=== PATIENT | female | born 1985 | race Caucasian/White ===

== ENCOUNTER → 2017-06-10 21:43 | Outpatient (CLI) | payer OTHER, SELFPAY | PROVIDERS: Family Provider Family Medicine; PCP Family Medicine; Visit Provider Psychiatry & Neurology Psychiatry | DX: G47.12 Idiopathic hypersomnia without long sleep time (principal) | CPT/HCPCS: 95810 ==

== ENCOUNTER → 2017-06-11 13:21 | Outpatient (CLI) | payer OTHER, SELFPAY ==
[2017-06-11 07:16] LABS: Amphetamine Urine VISTA NEGATIVE (<1000 ng/mL); Barbiturate Urine VISTA NEGATIVE (< 200 ng/mL); Benzodiazepine Urine VISTA NEGATIVE (< 200 ng/mL); Cocaine Urine VISTA NEGATIVE (< 300 ng/mL); Ecstacy Urine VISTA NEGATIVE (< 500 ng/mL); Methadone Urine VISTA NEGATIVE (< 300 ng/mL); PCP Urine VISTA NEGATIVE (< 25 ng/mL); THC Urine VISTA NEGATIVE (< 50 ng/mL); Vista UDS pH Range 5
== END ==
PROVIDERS: Family Provider Family Medicine; PCP Family Medicine; Visit Provider Psychiatry & Neurology Psychiatry
DX: G47.12 Idiopathic hypersomnia without long sleep time (principal)
CPT/HCPCS: 80307

== ENCOUNTER 2017-11-27 10:00 | Outpatient (RCR) | payer OTHER, SELFPAY ==
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
--- NOTE | 2017-09-16 17:00 | DT_ITS ---
This patient was seen during an EMR downtime September 09, 2017 - September 16, 2017. This patient may have a combination of paper and electronic documentation or all paper documentation. All documentation is viewable within the e-chart portion of [facility] for each patient visit.
== END 2017-11-27 19:00 | disposition home or self-care (01) ==
LOC: SP 10:00
PROVIDERS: Family Provider Family Medicine; PCP Family Medicine; Visit Provider Family Medicine
DX: S06.0X1S Concussion with loss of consciousness of 30 minutes or less, sequela (principal); R47.9 Unspecified speech disturbances; R41.3 Other amnesia
CPT/HCPCS: 92507; 92523

== ENCOUNTER 2018-06-20 14:00 | Outpatient (RCR) | payer OTHER, SELFPAY ==
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
--- NOTE | 2018-06-20 15:23 | HP.PTDCSUM ---
HP - PT D/C Summary It has been my pleasure to treat DENITA BULL under orders from Ramses Tyson, for the diagnosis of FM/generalized pain. for a total of 20 visit(s). Discharge Date: 06/20/18 Please see the following information for a summary of their discharge status. - Subjective Subjective: Better than I was. Stronger. Overall 6/10 pain many days. Sleep is OK, not great , was better for a while but crappy due to dogs, kids and pain. To doctor [place] in 6 months. Will like to join but not realistic money [place]. - Pain R shoulder/neck Pain Intensity (Out of 10): 6 all over. Pain Intensity (Out of 10): 6 - Overall Improvement % Improvement: 45 - Objective Objective/Function: Full aROM c/s without increased pain today. R shoulder elevation slightly tighter R vs L but very functional and not a lot of increased pain. strength in UE is symmetircal at 4+/5 with only slight abd pain on R transiently/. OVERALL BETTER AND WILL ATTEMPT TO MANAGE SYMPTOMS ON HER OWN. - Goals Goal 1:: Patient feel pain decreased by 50% to 4/10 at worst and manageable Goal Progress: Progressing Goal 2:: C/S AROM 60 ext and shoulder pain abolished. Goal Progress: Progressing Goal 3:: Patient able to do housework without taking frequent breaks Goal Progress: BETTER Goal 4:: I in [employer] pool ex to manage pain. Goal Progress: Goal Met - Plan Plan: D/C - D/C Information Discharge Comments: Pt doing well in water but cannot continue due to cost. Will try exercises to mimic them at home with band and light weight and contact doctor if pain worsens again. If there are questions or concerns regarding this patient's physical therapy, please feel free to call me at [phone]. Thank you for the referral of this patient. Sincerely, Garrick Schuler, DPT, OCS, CSCS
== END 2018-06-20 17:00 | disposition home or self-care (01) ==
LOC: PT 14:00
PROVIDERS: Family Provider Family Medicine; PCP Family Medicine; Visit Provider Family Medicine
DX: S06.0X1D Concussion with loss of consciousness of 30 minutes or less, subsequent encounter (principal); R47.89 Other speech disturbances; R41.3 Other amnesia
CPT/HCPCS: 92507; 97113; 97162; 97530

== ENCOUNTER → 2022-06-05 | Outpatient (CLI) | payer OTHER, SELFPAY ==
[2022-06-05 18:30] LABS: Erythrocyte Sedimentation Rate 27 mm/hr (0-30)
== END | disposition home or self-care (01) ==
PROVIDERS: PCP Family Medicine; Referring Provider Internal Medicine Rheumatology; Visit Provider Internal Medicine Rheumatology
DX: M06.4 Inflammatory polyarthropathy (principal); M79.7 Fibromyalgia
CPT/HCPCS: 36415; 85652

== ENCOUNTER → 2022-09-26 | Outpatient (CLI) | payer OTHER, SELFPAY ==
[2022-09-26 12:47] LABS: Absolute Lymphocyte Count 1.52 X10^3/uL (0.83-4.51); Absolute Neutrophil Count 2.5 X10^3/uL (2.0-7.7); Basophil# 0.03 X10^3/uL; Basophil% 0.6 % (0-1); Eosinophil# 0.19 X10^3/uL; Eosinophils% 4.1 % (0-5); Hematocrit 44.4 % (37-47); Hemoglobin 14.2 g/dL (12.0-15.0); Lymphocyte # 1.52 X10^3/ul (0.83-4.51); Lymphocyte % 32.6 % (19-41); Mean Corpuscular Hgb 30.9 pg (27.0-32.0); Mean Corpuscular Volume 96.5 fL (81-99); Monocyte# 0.44 X10^3/uL; Monocyte% 9.4 % (0-10); NRBC Flagged by Analyzer 0 % (0-5); Neutrophil # 2.47 X10^3/uL (2.7-7.7); Neutrophil % 53.1 % (47-70); Platelet Count 149 K/mm3 (150-450); RBC Distribution Width CV 12.4 % (11.6-14.6); RBC Distribution Width SD 44.3 fl (35.1-43.9); White Blood Count 4.7 K/mm3 (4.4-11.0)
[2022-09-26 13:35] LABS: ALB/GLOB Ratio 0.9 RATIO (0.9-2.4); AST(SGOT) 26 U/L (15-37); Alanine Aminotransfer ALT/SGPT 57 U/L (13-56); Albumin, Serum 3.6 g/dL (3.2-5.0); Alkaline Phosphatase 68 U/L (45-117); Anion Gap 6 (5-15); BUN 6 mg/dL (7-18); BUN/Creat Ratio 8.6 RATIO (10-20); Calcium,Total 8.7 mg/dL (8.5-10.1); Chloride 105 mmol/L (98-107); Creatinine, Serum 0.69 mg/dL (0.55-1.02); EST Glomerular Filtration Rate 101 mL/min (>60); Est Glom Filt Rate - Afr Amer 122 mL/min (>60); Globulin 3.8 g/dL (2.2-4.2); Glucose 121 mg/dL (74-106); Potassium 3.7 mmol/L (3.5-5.1); Protein, Total 7.4 g/dL (6.4-8.2); Sodium Level 137 mmol/L (136-145)
[2022-09-27 15:08] LABS: ANTINUCLEAR ANTIBODIES DIRECT Negative (Negative)
[2022-10-01 18:07] LABS: HLA B27 Negative (.)
== END | disposition home or self-care (01) ==
LOC: MTLAB 11:01
PROVIDERS: PCP Family Medicine; Referring Provider Internal Medicine Rheumatology; Visit Provider Internal Medicine Rheumatology
DX: M06.4 Inflammatory polyarthropathy (principal); Z79.899 Other long term (current) drug therapy
CPT/HCPCS: 36415; 80053; 81374; 85025; 86038

== ENCOUNTER → 2022-12-24 | Outpatient (CLI) | payer OTHER, SELFPAY ==
[2022-12-24 15:25] LABS: Absolute Lymphocyte Count 1.86 X10^3/uL (0.83-4.51); Absolute Neutrophil Count 4.1 X10^3/uL (2.0-7.7); Basophil# 0.05 X10^3/uL; Basophil% 0.7 % (0-1); Eosinophil# 0.17 X10^3/uL; Eosinophils% 2.5 % (0-5); Hematocrit 44.2 % (37-47); Hemoglobin 14.3 g/dL (12.0-15.0); Lymphocyte # 1.86 X10^3/ul (0.83-4.51); Lymphocyte % 27.7 % (19-41); Mean Corp Hgb Conc 32.4 g/dL (32-36); Mean Corpuscular Hgb 30.7 pg (27.0-32.0); Mean Corpuscular Volume 94.8 fL (81-99); Mean Platelet Vol. 12.8 fl (6.2-12.0); Monocyte# 0.51 X10^3/uL; Monocyte% 7.6 % (0-10); NRBC Flagged by Analyzer 0 % (0-5); Neutrophil # 4.11 X10^3/uL (2.7-7.7); Neutrophil % 61.2 % (47-70); Platelet Count 180 K/mm3 (150-450); RBC Distribution Width CV 12.2 % (11.6-14.6); RBC Distribution Width SD 42.7 fl (35.1-43.9); Red Blood Count 4.66 M/mm3 (4.2-5.4); White Blood Count 6.7 K/mm3 (4.4-11.0)
[2022-12-24 16:13] LABS: AST(SGOT) 18 U/L (15-37); Alanine Aminotransfer ALT/SGPT 47 U/L (13-56); Albumin, Serum 3.9 g/dL (3.2-5.0); Alkaline Phosphatase 82 U/L (45-117); Anion Gap 7 (5-15); BUN 9 mg/dL (7-18); BUN/Creat Ratio 12.5 RATIO (10-20); Calcium,Total 9.4 mg/dL (8.5-10.1); Chloride 105 mmol/L (98-107); Creatinine, Serum 0.72 mg/dL (0.55-1.02); EST Glomerular Filtration Rate 97 mL/min (>60); Est Glom Filt Rate - Afr Amer 117 mL/min (>60); Globulin 4.1 g/dL (2.2-4.2); Glucose 84 mg/dL (74-106); Potassium 3.7 mmol/L (3.5-5.1); Sodium Level 138 mmol/L (136-145)
[2022-12-26 13:08] LABS: ANTINUCLEAR ANTIBODIES DIRECT Negative (Negative)
[2022-12-31 16:09] LABS: HLA B27 Negative (.)
== END | disposition home or self-care (01) ==
PROVIDERS: PCP Family Medicine; Referring Provider Internal Medicine Rheumatology; Visit Provider Internal Medicine Rheumatology
DX: M06.4 Inflammatory polyarthropathy (principal); M79.7 Fibromyalgia; Z79.899 Other long term (current) drug therapy
CPT/HCPCS: 36415; 80053; 81374; 85025; 86038

== ENCOUNTER → 2022-12-28 | Outpatient (CLI) | payer OTHER, SELFPAY ==
[2023-01-01 21:07] LABS: G6PD Quant Test 299 (127-427); Red Blood Cell Count Test/G6PD 4.95 x10E6/uL (3.77-5.28)
== END | disposition home or self-care (01) ==
LOC: MTLAB 15:14
PROVIDERS: PCP Family Medicine; Referring Provider Internal Medicine Rheumatology; Visit Provider Internal Medicine Rheumatology
DX: M06.4 Inflammatory polyarthropathy (principal); M79.7 Fibromyalgia; Z79.899 Other long term (current) drug therapy
CPT/HCPCS: 36415; 82955

== ENCOUNTER → 2023-02-22 | Outpatient (CLI) | payer OTHER, SELFPAY ==
[2023-02-22 15:40] LABS: Absolute Lymphocyte Count 1.48 X10^3/uL (0.83-4.51); Absolute Neutrophil Count 3.3 X10^3/uL (2.0-7.7); Basophil# 0.05 X10^3/uL; Basophil% 0.9 % (0-1); Eosinophil# 0.16 X10^3/uL; Hematocrit 42.2 % (37-47); Hemoglobin 13.1 g/dL (12.0-15.0); Lymphocyte # 1.48 X10^3/ul (0.83-4.51); Lymphocyte % 27.4 % (19-41); Mean Corpuscular Hgb 30.5 pg (27.0-32.0); Mean Corpuscular Volume 98.4 fL (81-99); Mean Platelet Vol. 12.7 fl (6.2-12.0); Monocyte% 7.4 % (0-10); NRBC Flagged by Analyzer 0 % (0-5); Neutrophil % 60.9 % (47-70); Platelet Count 150 K/mm3 (150-450); RBC Distribution Width SD 46.4 fl (35.1-43.9); Red Blood Count 4.29 M/mm3 (4.2-5.4); White Blood Count 5.4 K/mm3 (4.4-11.0)
[2023-02-22 15:47] LABS: AST(SGOT) 15 U/L (15-37); Alanine Aminotransfer ALT/SGPT 33 U/L (13-56); Albumin, Serum 3.6 g/dL (3.2-5.0); Alkaline Phosphatase 60 U/L (45-117); Anion Gap 4 (5-15); BUN 12 mg/dL (7-18); BUN/Creat Ratio 11.7 RATIO (10-20); Calcium,Total 8.5 mg/dL (8.5-10.1); Chloride 110 mmol/L (98-107); Creatinine, Serum 1.03 mg/dL (0.55-1.02); EST Glomerular Filtration Rate 64 mL/min (>60); Est Glom Filt Rate - Afr Amer 77 mL/min (>60); Globulin 3.6 g/dL (2.2-4.2); Glucose 112 mg/dL (74-106); Potassium 3.9 mmol/L (3.5-5.1); Protein, Total 7.2 g/dL (6.4-8.2); Sodium Level 141 mmol/L (136-145)
== END | disposition home or self-care (01) ==
LOC: MTLAB 13:36
PROVIDERS: PCP Family Medicine; Referring Provider Internal Medicine Rheumatology; Visit Provider Internal Medicine Rheumatology
DX: M06.4 Inflammatory polyarthropathy (principal); M79.7 Fibromyalgia; Z79.899 Other long term (current) drug therapy
CPT/HCPCS: 36415; 80053; 85025

== ENCOUNTER → 2023-04-19 | Outpatient (CLI) | payer OTHER, MEDICAID, SELFPAY ==
--- OUTSIDE RECORDS SUMMARY | 2023-04-19 17:17 | XMS RPT_ITS | CCD ---
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 weeks.TKRN Asthma, mild persistent 07/06/2013 05/17/19 15 Overview: 08/12/2013Patient has a history of asthma treated by Dr. Ramirez. She uses an albuterol inhaler when necessary. TKRN Adjustment disorder with mixed anxiety and depre ssed mood 07/06/2013 05/17/2014 Overview: 08/12/2013Pt has a history of depression diagnosed at age 17. She has been off medication for 2 weeks . She believes she is doing well off medication. Discussed increased risks of depression during and and importance of reporting the development or worsening of symptoms should they occur. Pt denies ever having any suicidal thoughts or tendencies or thoughts of hurting others. Patient denies any depression. TKRN GBS (group B Streptococcus c arrier), +RV culture, currently 01/19/2013 03/20/2013 Gestational diabetes mellitus in childbirth, t controlled 12/31/2012 03/20/2013 contractions 12/03/2012 03/20/2013 Overview: - was 1-2cm dilated, admitted overnight obs and given BMZ x 2, no cervical change, stable. Federica Escobar MD Gestational thrombocytopenia 11/21/2012 Overview: Platelets 148 at 28 weeks Abnormal glucose complicating 11/22/19 13 03/20/2013 Overview: Ordered 3 hour gtt Exposure to parvovirus 11/15/2012 3 Overview: November 15, 2012 IGM and IGG neg during acute illness. Recommend repeat testing in 10 days and 3-4 weeks. May need MFM consult and US monitoring. Kate Castrejon MD Supervision of other normal 09/02/2012 03/20/2013 Overview: Boy on us- Anxiety 08/04/2012 03/20/2013 History of depression 07/22/2012 03/20/2013 Overview: 07/22/2012Pt has a history of depression diagnosed at age 17. She has been off medication for 8 years . She believes she is doing well off medication. Discussed increased risks of depression during and and importance of reporting the development or worsening of symptoms should they occur. Pt denies ever having any suicidal thoughts or tendencies or thoughts of hurting others Immunization due 07/22/2012 03/20/2013 Overview: 07/22/2012tetanus vaccine is not up to date Backache, unspecified 05/03/2011 03/20/2013 Asthma 10/28/2009 03/20/2013 Overview: 07/22/2012Patient has a history of asthma treated by Dr. Ramirez. She uses an albuterol inhaler when necessary. . documented as of this encounter (statuses as of 10/05/2021) [facility] History of Past illness Narrative* Problem Noted Date Resolved Date 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 aura and without status migrainosus 01/18/2017 11/18/2017 Gestational diabetes 09/23/2013 05/17/2014 Overview: 09/23/13 - needs diabetic teaching & hbA1c - KJ Short interval between pregn ancies complicating , antepartum 08/12/2013 05/17/2014 Overview: 08/12/2013She delivered her previous child February 05, 2013. TKRN History of gestational diabe jaja in prior , currently 08/12/2013 05/17/2014 Overview: 08/18/13 - 3hr GTT ordered - KJ 08/12/2013She has a history of gestational diabetes with her last . One-hour GCT ordered by Dr. Alvarez. TKRN History of labor 08/12/2013 015 Overview: 08/12/2013 history of labor with last beginning at 29 weeks.TKRN Asthma, mild persistent 07/06/2013 05/17/19 15 Overview: 08/12/2013Patient has a history of asthma treated by Dr. Ramirez. She uses an albuterol inhaler when necessary. TKRN Adjustment disorder with mixed anxiety and depre ssed mood 07/06/2013 05/17/2014 Overview: 08/12/2013Pt has a history of depression diagnosed at age 17. She has been off medication for 2 weeks . She believes she is doing well off medication. Discussed increased risks of depression during and and importance of reporting the development or worsening of symptoms should they occur. Pt denies ever having any suicidal thoughts or tendencies or thoughts of hurting others. Patient denies any depression. TKRN GBS (group B Streptococcus c arrier), +RV culture, currently 01/19/2013 03/20/2013 Gestational diabetes mellitus in childbirth, t controlled 12/31/2012 03/20/2013 contractions 12/03/2012 03/20/2013 Overview: 8/21-22- was 1-2cm dilated, admitted overnight obs and given BMZ x 2, no cervical change, stable. Federica Escobar MD Gestational thrombocytopenia 11/21/2012 Overview: Platelets 148 at 28 weeks Abnormal glucose complicating 11/22/19 13 03/20/2013 Overview: Ordered 3 hour gtt Exposure to parvovirus 11/15/2012 3 Overview: November 15, 2012 IGM and IGG neg during acute illness. Recommend repeat testing in 10 days and 3-4 weeks. May need MFM consult and US monitoring. Kate Castrejon MD Supervision of other normal 09/02/2012 03/20/2013 Overview: Boy on us- Anxiety 08/04/2012 03/20/2013 History of depression 07/22/2012 03/20/2013 Overview: 07/22/2012Pt has a history of depression diagnosed at age 17. She has been off medication for 8 years . She believes she is doing well off medication. Discussed increased risks of depression during and and importance of reporting the development or worsening of symptoms should they occur. Pt denies ever having any suicidal thoughts or tendencies or thoughts of hurting others Immunization due 07/22/2012 03/20/2013 Overview: 07/22/2012tetanus vaccine is not up to date Backache, unspecified 05/03/2011 03/20/2013 Asthma 10/28/2009 03/20/2013 Overview: 07/22/2012Patient has a history of asthma treated by Dr. Ramirez. She uses an albuterol inhaler when necessary. . documented as of this encounter (statuses as of 12/07/2021) [facility] History of Past illness Narrative* Problem Noted Date Resolved Date 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 aura and without status migrainosus 01/18/2017 11/18/2017 Gestational diabetes 09/23/2013 05/17/2014 Overview: 09/23/13 - needs diabetic teaching & hbA1c - KJ Short interval between pregn ancies complicating , antepartum 08/12/2013 05/17/2014 Overview: 08/12/2013She delivered her previous child February 05, 2013. TKRN History of gestational diabe jaja in prior , currently 08/12/2013 05/17/2014 Overview: 08/18/13 - 3hr GTT ordered - KJ 08/12/2013She has a history of gestational diabetes with her last . One-hour GCT ordered by Dr. Alvarez. TKRN History of labor 08/12/2013 015 Overview: 08/12/2013 history of labor with last beginning at 29 weeks.TKRN Asthma, mild persistent 07/06/2013 05/17/19 15 Overview: 08/12/2013Patient has a history of asthma treated by Dr. Ramirez. She uses an albuterol inhaler when necessary. TKRN Adjustment disorder with mixed anxiety and depre ssed mood 07/06/2013 05/17/2014 Overview: 08/12/2013Pt has a history of depression diagnosed at age 17. She has been off medication for 2 weeks . She believes she is doing well off medication. Discussed increased risks of depression during and and importance of reporting the development or worsening of symptoms should they occur. Pt denies ever having any suicidal thoughts or tendencies or thoughts of hurting others. Patient denies any depression. TKRN GBS (group B Streptococcus c arrier), +RV culture, currently 01/19/2013 03/20/2013 Gestational diabetes mellitus in childbirth, t controlled 12/31/2012 03/20/2013 contractions 12/03/2012 03/20/2013 Overview: - was 1-2cm dilated, admitted overnight obs and given BMZ x 2, no cervical change, stable. Federica Escobar MD Gestational thrombocytopenia 11/21/2012 Overview: Platelets 148 at 28 weeks Abnormal glucose complicating 11/22/19 13 03/20/2013 Overview: Ordered 3 hour gtt Exposure to parvovirus 11/15/2012 3 Overview: November 15, 2012 IGM and IGG neg during acute illness. Recommend repeat testing in 10 days and 3-4 weeks. May need MFM consult and US monitoring. Kate Castrejon MD Supervision of other normal 09/02/2012 03/20/2013 Overview: Boy on us- Anxiety 08/04/2012 03/20/2013 History of depression 07/22/2012 03/20/2013 Overview: 07/22/2012Pt has a history of depression diagnosed at age 17. She has been off medication for 8 years . She believes she is doing well off medication. Discussed increased risks of depression during and and importance of reporting the development or worsening of symptoms should they occur. Pt denies ever having any suicidal thoughts or tendencies or thoughts of hurting others Immunization due 07/22/2012 03/20/2013 Overview: 07/22/2012tetanus vaccine is not up to date Backache, unspecified 05/03/2011 03/20/2013 Asthma 10/28/2009 03/20/2013 Overview: 07/22/2012Patient has a history of asthma treated by Dr. Ramirez. She uses an albuterol inhaler when necessary. . documented as of this encounter (statuses as of 01/31/2022) [facility] History of Past illness Narrative* Problem Noted Date Resolved Date 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 aura and without status migrainosus 01/18/2017 11/18/2017 Gestational diabetes 09/23/2013 05/17/2014 Overview: 09/23/13 - needs diabetic teaching & hbA1c - KJ Short interval between pregn ancies complicating , antepartum 08/12/2013 05/17/2014 Overview: 08/12/2013She delivered her previous child February 05, 2013. TKRN History of gestational diabe jaja in prior , currently 08/12/2013 05/17/2014 Overview: 08/18/13 - 3hr GTT ordered - KJ 08/12/2013She has a history of gestational diabetes with her last . One-hour GCT ordered by Dr. Alvarez. TKRN History of labor 08/12/2013 015 Overview: 08/12/2013 history of labor with last beginning at 29 weeks.TKRN Asthma, mild persistent 07/06/2013 05/17/19 15 Overview: 08/12/2013Patient has a history of asthma treated by Dr. Ramirez. She uses an albuterol inhaler when necessary. TKRN Adjustment disorder with mixed anxiety and depre ssed mood 07/06/2013 05/17/2014 Overview: 08/12/2013Pt has a history of depression diagnosed at age 17. She has been off medication for 2 weeks . She believes she is doing well off medication. Discussed increased risks of depression during and and importance of reporting the development or worsening of symptoms should they occur. Pt denies ever having any suicidal thoughts or tendencies or thoughts of hurting others. Patient denies any depression. TKRN GBS (group B Streptococcus c arrier), +RV culture, currently 01/19/2013 03/20/2013 Gestational diabetes mellitus in childbirth, t controlled 12/31/2012 03/20/2013 contractions 12/03/2012 03/20/2013 Overview: - was 1-2cm dilated, admitted overnight obs and given BMZ x 2, no cervical change, stable. Federica Escobar MD Gestational thrombocytopenia 11/21/2012 Overview: Platelets 148 at 28 weeks Abnormal glucose complicating 11/22/19 13 03/20/2013 Overview: Ordered 3 hour gtt Exposure to parvovirus 11/15/2012 3 Overview: November 15, 2012 IGM and IGG neg during acute illness. Recommend repeat testing in 10 days and 3-4 weeks. May need MFM consult and US monitoring. Kate Castrejon MD Supervision of other normal 09/02/2012 03/20/2013 Overview: Boy on us- Anxiety 08/04/2012 03/20/2013 History of depression 07/22/2012 03/20/2013 Overview: 07/22/2012Pt has a history of depression diagnosed at age 17. She has been off medication for 8 years . She believes she is doing well off medication. Discussed increased risks of depression during and and importance of reporting the development or worsening of symptoms should they occur. Pt denies ever having any suicidal thoughts or tendencies or thoughts of hurting others Immunization due 07/22/2012 03/20/2013 Overview: 07/22/2012tetanus vaccine is not up to date Backache, unspecified 05/03/2011 03/20/2013 Asthma 10/28/2009 03/20/2013 Overview: 07/22/2012Patient has a history of asthma treated by Dr. Ramirez. She uses an albuterol inhaler when necessary. . documented as of this encounter (statuses as of 03/10/2022) [facility] History of Past illness Narrative* Problem Noted Date Resolved Date 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 aura and without status migrainosus 01/18/2017 11/18/2017 Gestational diabetes 09/23/2013 05/17/2014 Overview: 09/23/13 - needs diabetic teaching & hbA1c - KJ Short interval between pregn ancies complicating , antepartum 08/12/2013 05/17/2014 Overview: 08/12/2013She delivered her previous child February 05, 2013. TKRN History of gestational diabe jaja in prior , currently 08/12/2013 05/17/2014 Overview: 08/18/13 - 3hr GTT ordered - KJ 08/12/2013Shmatilde has a history of gestational diabetes with her last . One-hour GCT ordered by Dr. Alvarez. TKRN History of labor 08/12/2013 015 Overview: 08/12/2013 history of labor with last beginning at 29 weeks.TKRN Asthma, mild persistent 07/06/2013 05/17/19 15 Overview: 08/12/2013Patient has a history of asthma treated by Dr. Ramirez. She uses an albuterol inhaler when necessary. TKRN Adjustment disorder with mixed anxiety and depre ssed mood 07/06/2013 05/17/2014 Overview: 08/12/2013Pt has a history of depression diagnosed at age 17. She has been off medication for 2 weeks . She believes she is doing well off medication. Discussed increased risks of depression during and and importance of reporting the development or worsening of symptoms should they occur. Pt denies ever having any suicidal thoughts or tendencies or thoughts of hurting others. Patient denies any depression. TKRN GBS (group B Streptococcus c arrier), +RV culture, currently 01/19/2013 03/20/2013 Gestational diabetes mellitus in childbirth, t controlled 12/31/2012 03/20/2013 contractions 12/03/2012 03/20/2013 Overview: - was 1-2cm dilated, admitted overnight obs and given BMZ x 2, no cervical change, stable. Federica Escobar MD Gestational thrombocytopenia 11/21/2012 Overview: Platelets 148 at 28 weeks Abnormal glucose complicating 11/22/19 13 03/20/2013 Overview: Ordered 3 hour gtt Exposure to parvovirus 11/15/2012 3 Overview: November 15, 2012 IGM and IGG neg during acute illness. Recommend repeat testing in 10 days and 3-4 weeks. May need MFM consult and US monitoring. Kate Castrejon MD Supervision of other normal 09/02/2012 03/20/2013 Overview: Boy on us- Anxiety 08/04/2012 03/20/2013 History of depression 07/22/2012 03/20/2013 Overview: 07/22/2012Pt has a history of depression diagnosed at age 17. She has been off medication for 8 years . She believes she is doing well off medication. Discussed increased risks of depression during and and importance of reporting the development or worsening of symptoms should they occur. Pt denies ever having any suicidal thoughts or tendencies or thoughts of hurting others Immunization due 07/22/2012 03/20/2013 Overview: 07/22/2012tetanus vaccine is not up to date Backache, unspecified 05/03/2011 03/20/2013 Asthma 10/28/2009 03/20/2013 Overview: 07/22/2012Patient has a history of asthma treated by Dr. Ramirez. She uses an albuterol inhaler when necessary. . documented as of this encounter (statuses as of 05/09/2022) [facility] History of Past illness Narrative* Problem Noted Date Resolved Date 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 aura and without status migrainosus 01/18/2017 11/18/2017 Gestational diabetes 09/23/2013 05/17/2014 Overview: 09/23/13 - needs diabetic teaching & hbA1c - KJ Short interval between pregn ancies complicating , antepartum 08/12/2013 05/17/2014 Overview: 08/12/2013She delivered her previous child February 05, 2013. TKRN History of gestational diabe jaja in prior , currently 08/12/2013 05/17/2014 Overview: 08/18/13 - 3hr GTT ordered - KJ 08/12/2013She has a history of gestational diabetes with her last . One-hour GCT ordered by Dr. Alvarez. TKRN History of labor 08/12/2013 015 Overview: 08/12/2013 history of labor with last beginning at 29 weeks.TKRN Asthma, mild persistent 07/06/2013 05/17/19 15 Overview: 08/12/2013Patient has a history of asthma treated by Dr. Ramirez. She uses an albuterol inhaler when necessary. TKRN Adjustment disorder with mixed anxiety and depre ssed mood 07/06/2013 05/17/2014 Overview: 08/12/2013Pt has a history of depression diagnosed at age 17. She has been off medication for 2 weeks . She believes she is doing well off medication. Discussed increased risks of depression during and and importance of reporting the development or worsening of symptoms should they occur. Pt denies ever having any suicidal thoughts or tendencies or thoughts of hurting others. Patient denies any depression. TKRN GBS (group B Streptococcus c arrier), +RV culture, currently 01/19/2013 03/20/2013 Gestational diabetes mellitus in childbirth, t controlled 12/31/2012 03/20/2013 contractions 12/03/2012 03/20/2013 Overview: - was 1-2cm dilated, admitted overnight obs and given BMZ x 2, no cervical change, stable. Federica Escobar MD Gestational thrombocytopenia 11/21/2012 Overview: Platelets 148 at 28 weeks Abnormal glucose complicating 11/22/19 13 03/20/2013 Overview: Ordered 3 hour gtt Exposure to parvovirus 11/15/2012 3 Overview: November 15, 2012 IGM and IGG neg during acute illness. Recommend repeat testing in 10 days and 3-4 weeks. May need MFM consult and US monitoring. Kate Castrejon MD Supervision of other normal 09/02/2012 03/20/2013 Overview: Boy on us- Anxiety 08/04/2012 03/20/2013 History of depression 07/22/2012 03/20/2013 Overview: 07/22/2012Pt has a history of depression diagnosed at age 17. She has been off medication for 8 years . She believes she is doing well off medication. Discussed increased risks of depression during and and importance of reporting the development or worsening of symptoms should they occur. Pt denies ever having any suicidal thoughts or tendencies or thoughts of hurting others Immunization due 07/22/2012 03/20/2013 Overview: 07/22/2012tetanus vaccine is not up to date Backache, unspecified 05/03/2011 03/20/2013 Asthma 10/28/2009 03/20/2013 Overview: 07/22/2012Patient has a history of asthma treated by Dr. Ramirez. She uses an albuterol inhaler when necessary. . documented as of this encounter (statuses as of 06/06/2022) [facility] History of Past illness Narrative* Problem Noted Date Resolved Date 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 aura and without status migrainosus 01/18/2017 11/18/2017 Gestational diabetes 09/23/2013 05/17/2014 Overview: 09/23/13 - needs diabetic teaching & hbA1c - KJ Short interval between pregn ancies complicating , antepartum 08/12/2013 05/17/2014 Overview: 08/12/2013She delivered her previous child February 05, 2013. TKRN History of gestational diabe jaja in prior , currently 08/12/2013 05/17/2014 Overview: 08/18/13 - 3hr GTT ordered - KJ 08/12/2013She has a history of gestational diabetes with her last . One-hour GCT ordered by Dr. Alvarez. TKRN History of labor 08/12/2013 015 Overview: 08/12/2013 history of labor with last beginning at 29 weeks.TKRN Asthma, mild persistent 07/06/2013 05/17/19 15 Overview: 08/12/2013Patient has a history of asthma treated by Dr. Ramirez. She uses an albuterol inhaler when necessary. TKRN Adjustment disorder with mixed anxiety and depre ssed mood 07/06/2013 05/17/2014 Overview: 08/12/2013Pt has a history of depression diagnosed at age 17. She has been off medication for 2 weeks . She believes she is doing well off medication. Discussed increased risks of depression during and and importance of reporting the development or worsening of symptoms should they occur. Pt denies ever having any suicidal thoughts or tendencies or thoughts of hurting others. Patient denies any depression. TKRN GBS (group B Streptococcus c arrier), +RV culture, currently 01/19/2013 03/20/2013 Gestational diabetes mellitus in childbirth, t controlled 12/31/2012 03/20/2013 contractions 12/03/2012 03/20/2013 Overview: - was 1-2cm dilated, admitted overnight obs and given BMZ x 2, no cervical change, stable. Federica Escobar MD Gestational thrombocytopenia 11/21/2012 Overview: Platelets 148 at 28 weeks Abnormal glucose complicating 11/22/19 13 03/20/2013 Overview: Ordered 3 hour gtt Exposure to parvovirus 11/15/2012 3 Overview: November 15, 2012 IGM and IGG neg during acute illness. Recommend repeat testing in 10 days and 3-4 weeks. May need MFM consult and US monitoring. Kate Castrejon MD Supervision of other normal 09/02/2012 03/20/2013 Overview: Boy on us- Anxiety 08/04/2012 03/20/2013 History of depression 07/22/2012 03/20/2013 Overview: 07/22/2012Pt has a history of depression diagnosed at age 17. She has been off medication for 8 years . She believes she is doing well off medication. Discussed increased risks of depression during and and importance of reporting the development or worsening of symptoms should they occur. Pt denies ever having any suicidal thoughts or tendencies or thoughts of hurting others Immunization due 07/22/2012 03/20/2013 Overview: 07/22/2012tetanus vaccine is not up to date Backache, unspecified 05/03/2011 03/20/2013 Asthma 10/28/2009 03/20/2013 Overview: 07/22/2012Patient has a history of asthma treated by Dr. Ramirez. She uses an albuterol inhaler when necessary. . documented as of this encounter (statuses as of 07/19/2022) [facility] History of Past illness Narrative* Problem Noted Date Resolved Date 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 aura and without status migrainosus 01/18/2017 11/18/2017 Gestational diabetes 09/23/2013 05/17/2014 Overview: 09/23/13 - needs diabetic teaching & hbA1c - KJ Short interval between pregn ancies complicating , antepartum 08/12/2013 05/17/2014 Overview: 08/12/2013She delivered her previous child February 05, 2013. TKRN History of gestational diabe jaja in prior , currently 08/12/2013 05/17/2014 Overview: 08/18/13 - 3hr GTT ordered - KJ 08/12/2013She has a history of gestational diabetes with her last . One-hour GCT ordered by Dr. Alvarez. TKRN History of labor 08/12/2013 015 Overview: 08/12/2013 history of labor with last beginning at 29 weeks.TKRN Asthma, mild persistent 07/06/2013 05/17/19 15 Overview: 08/12/2013Patient has a history of asthma treated by Dr. Ramirez. She uses an albuterol inhaler when necessary. TKRN Adjustment disorder with mixed anxiety and depre ssed mood 07/06/2013 05/17/2014 Overview: 08/12/2013Pt has a history of depression diagnosed at age 17. She has been off medication for 2 weeks . She believes she is doing well off medication. Discussed increased risks of depression during and and importance of reporting the development or worsening of symptoms should they occur. Pt denies ever having any suicidal thoughts or tendencies or thoughts of hurting others. Patient denies any depression. TKRN GBS (group B Streptococcus c arrier), +RV culture, currently 01/19/2013 03/20/2013 Gestational diabetes mellitus in childbirth, t controlled 12/31/2012 03/20/2013 contractions 12/03/2012 03/20/2013 Overview: - was 1-2cm dilated, admitted overnight obs and given BMZ x 2, no cervical change, stable. Federica Escobar MD Gestational thrombocytopenia 11/21/2012 Overview: Platelets 148 at 28 weeks Abnormal glucose complicating 11/22/19 13 03/20/2013 Overview: Ordered 3 hour gtt Exposure to parvovirus 11/15/2012 3 Overview: November 15, 2012 IGM and IGG neg during acute illness. Recommend repeat testing in 10 days and 3-4 weeks. May need MFM consult and US monitoring. Kate Castrejon MD Supervision of other normal 09/02/2012 03/20/2013 Overview: Boy on us- Anxiety 08/04/2012 03/20/2013 History of depression 07/22/2012 03/20/2013 Overview: 07/22/2012Pt has a history of depression diagnosed at age 17. She has been off medication for 8 years . She believes she is doing well off medication. Discussed increased risks of depression during and and importance of reporting the development or worsening of symptoms should they occur. Pt denies ever having any suicidal thoughts or tendencies or thoughts of hurting others Immunization due 07/22/2012 03/20/2013 Overview: 07/22/2012tetanus vaccine is not up to date Backache, unspecified 05/03/2011 03/20/2013 Asthma 10/28/2009 03/20/2013 Overview: 07/22/2012Patient has a history of asthma treated by Dr. Ramirez. She uses an albuterol inhaler when necessary. . documented as of this encounter (statuses as of 07/30/2022) [facility] History of Past illness Narrative* Problem Noted Date Resolved Date 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 aura and without status migrainosus 01/18/2017 11/18/2017 Gestational diabetes 09/23/2013 05/17/2014 Overview: 09/23/13 - needs diabetic teaching & hbA1c - KJ Short interval between pregn ancies complicating , antepartum 08/12/2013 05/17/2014 Overview: 08/12/2013She delivered her previous child February 05, 2013. TKRN History of gestational diabe jaja in prior , currently 08/12/2013 05/17/2014 Overview: 08/18/13 - 3hr GTT ordered - KJ 08/12/2013She has a history of gestational diabetes with her last . One-hour GCT ordered by Dr. Alvarez. TKRN History of labor 08/12/2013 015 Overview: 08/12/2013 history of labor with last beginning at 29 weeks.TKRN Asthma, mild persistent 07/06/2013 05/17/19 15 Overview: 08/12/2013Patient has a history of asthma treated by Dr. Ramirez. She uses an albuterol inhaler when necessary. TKRN Adjustment disorder with mixed anxiety and depre ssed mood 07/06/2013 05/17/2014 Overview: 08/12/2013Pt has a history of depression diagnosed at age 17. She has been off medication for 2 weeks . She believes she is doing well off medication. Discussed increased risks of depression during and and importance of reporting the development or worsening of symptoms should they occur. Pt denies ever having any suicidal thoughts or tendencies or thoughts of hurting others. Patient denies any depression. TKRN GBS (group B Streptococcus c arrier), +RV culture, currently 01/19/2013 03/20/2013 Gestational diabetes mellitus in childbirth, t controlled 12/31/2012 03/20/2013 contractions 12/03/2012 03/20/2013 Overview: - was 1-2cm dilated, admitted overnight obs and given BMZ x 2, no cervical change, stable. Federica Escobar MD Gestational thrombocytopenia 11/21/2012 Overview: Platelets 148 at 28 weeks Abnormal glucose complicating 11/22/19 13 03/20/2013 Overview: Ordered 3 hour gtt Exposure to parvovirus 11/15/2012 3 Overview: November 15, 2012 IGM and IGG neg during acute illness. Recommend repeat testing in 10 days and 3-4 weeks. May need MFM consult and US monitoring. Kate Castrejon MD Supervision of other normal 09/02/2012 03/20/2013 Overview: Boy on us- Anxiety 08/04/2012 03/20/2013 History of depression 07/22/2012 03/20/2013 Overview: 07/22/2012Pt has a history of depression diagnosed at age 17. She has been off medication for 8 years . She believes she is doing well off medication. Discussed increased risks of depression during and and importance of reporting the development or worsening of symptoms should they occur. Pt denies ever having any suicidal thoughts or tendencies or thoughts of hurting others Immunization due 07/22/2012 03/20/2013 Overview: 07/22/2012tetanus vaccine is not up to date Backache, unspecified 05/03/2011 03/20/2013 Asthma 10/28/2009 03/20/2013 Overview: 07/22/2012Patient has a history of asthma treated by Dr. Ramirez. She uses an albuterol inhaler when necessary. . documented as of this encounter (statuses as of 08/02/2022) [facility] History of Past illness Narrative* Problem Noted Date Resolved Date 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 aura and without status migrainosus 01/18/2017 11/18/2017 Gestational diabetes 09/23/2013 05/17/2014 Overview: 09/23/13 - needs diabetic teaching & hbA1c - KJ Short interval between pregn ancies complicating , antepartum 08/12/2013 05/17/2014 Overview: 08/12/2013She delivered her previous child February 05, 2013. TKRN History of gestational diabe jaja in prior , currently 08/12/2013 05/17/2014 Overview: 08/18/13 - 3hr GTT ordered - KJ 08/12/2013She has a history of gestational diabetes with her last . One-hour GCT ordered by Dr. Alvarez. TKRN History of labor 08/12/2013 015 Overview: 08/12/2013 history of labor with last beginning at 29 weeks.TKRN Asthma, mild persistent 07/06/2013 05/17/19 15 Overview: 08/12/2013Patient has a history of asthma treated by Dr. Ramirez. She uses an albuterol inhaler when necessary. TKRN Adjustment disorder with mixed anxiety and depre ssed mood 07/06/2013 05/17/2014 Overview: 08/12/2013Pt has a history of depression diagnosed at age 17. She has been off medication for 2 weeks . She believes she is doing well off medication. Discussed increased risks of depression during and and importance of reporting the development or worsening of symptoms should they occur. Pt denies ever having any suicidal thoughts or tendencies or thoughts of hurting others. Patient denies any depression. TKRN GBS (group B Streptococcus c arrier), +RV culture, currently 01/19/2013 03/20/2013 Gestational diabetes mellitus in childbirth, t controlled 12/31/2012 03/20/2013 contractions 12/03/2012 03/20/2013 Overview: - was 1-2cm dilated, admitted overnight obs and given BMZ x 2, no cervical change, stable. Federica Escobar MD Gestational thrombocytopenia 11/21/2012 Overview: Platelets 148 at 28 weeks Abnormal glucose complicating 11/22/19 13 03/20/2013 Overview: Ordered 3 hour gtt Exposure to parvovirus 11/15/2012 3 Overview: November 15, 2012 IGM and IGG neg during acute illness. Recommend repeat testing in 10 days and 3-4 weeks. May need MFM consult and US monitoring. Kate Castrejon MD Supervision of other normal 09/02/2012 03/20/2013 Overview: Boy on us- Anxiety 08/04/2012 03/20/2013 History of depression 07/22/2012 03/20/2013 Overview: 07/22/2012Pt has a history of depression diagnosed at age 17. She has been off medication for 8 years . She believes she is doing well off medication. Discussed increased risks of depression during and and importance of reporting the development or worsening of symptoms should they occur. Pt denies ever having any suicidal thoughts or tendencies or thoughts of hurting others Immunization due 07/22/2012 03/20/2013 Overview: 07/22/2012tetanus vaccine is not up to date Backache, unspecified 05/03/2011 03/20/2013 Asthma 10/28/2009 03/20/2013 Overview: 07/22/2012Patient has a history of asthma treated by Dr. Ramirez. She uses an albuterol inhaler when necessary. . documented as of this encounter (statuses as of 08/14/2022) [facility] History of Past illness Narrative* Problem Noted Date Resolved Date 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 aura and without status migrainosus 01/18/2017 11/18/2017 Gestational diabetes 09/23/2013 05/17/2014 Overview: 09/23/13 - needs diabetic teaching & hbA1c - KJ Short interval between pregn ancies complicating , antepartum 08/12/2013 05/17/2014 Overview: 08/12/2013She delivered her previous child February 05, 2013. TKRN History of gestational diabe jaja in prior , currently 08/12/2013 05/17/2014 Overview: 08/18/13 - 3hr GTT ordered - KJ 08/12/2013She has a history of gestational diabetes with her last . One-hour GCT ordered by Dr. Alvarez. TKRN History of labor 08/12/2013 015 Overview: 08/12/2013 history of labor with last beginning at 29 weeks.TKRN Asthma, mild persistent 07/06/2013 05/17/19 15 Overview: 08/12/2013Patient has a history of asthma treated by Dr. Ramirez. She uses an albuterol inhaler when necessary. TKRN Adjustment disorder with mixed anxiety and depre ssed mood 07/06/2013 05/17/2014 Overview: 08/12/2013Pt has a history of depression diagnosed at age 17. She has been off medication for 2 weeks . She believes she is doing well off medication. Discussed increased risks of depression during and and importance of reporting the development or worsening of symptoms should they occur. Pt denies ever having any suicidal thoughts or tendencies or thoughts of hurting others. Patient denies any depression. TKRN GBS (group B Streptococcus c arrier), +RV culture, currently 01/19/2013 03/20/2013 Gestational diabetes mellitus in childbirth, t controlled 12/31/2012 03/20/2013 contractions 12/03/2012 03/20/2013 Overview: - was 1-2cm dilated, admitted overnight obs and given BMZ x 2, no cervical change, stable. Federica Escobar MD Gestational thrombocytopenia 11/21/2012 Overview: Platelets 148 at 28 weeks Abnormal glucose complicating 11/22/19 13 03/20/2013 Overview: Ordered 3 hour gtt Exposure to parvovirus 11/15/2012 3 Overview: November 15, 2012 IGM and IGG neg during acute illness. Recommend repeat testing in 10 days and 3-4 weeks. May need MFM consult and US monitoring. Kate Castrejon MD Supervision of other normal 09/02/2012 03/20/2013 Overview: Boy on us- Anxiety 08/04/2012 03/20/2013 History of depression 07/22/2012 03/20/2013 Overview: 07/22/2012Pt has a history of depression diagnosed at age 17. She has been off medication for 8 years . She believes she is doing well off medication. Discussed increased risks of depression during and and importance of reporting the development or worsening of symptoms should they occur. Pt denies ever having any suicidal thoughts or tendencies or thoughts of hurting others Immunization due 07/22/2012 03/20/2013 Overview: 07/22/2012tetanus vaccine is not up to date Backache, unspecified 05/03/2011 03/20/2013 Asthma 10/28/2009 03/20/2013 Overview: 07/22/2012Patient has a history of asthma treated by Dr. Ramirez. She uses an albuterol inhaler when necessary. . documented as of this encounter (statuses as of 08/15/2022) [facility] History of Past illness Narrative* Problem Noted Date Resolved Date 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 aura and without status migrainosus 01/18/2017 11/18/2017 Gestational diabetes 09/23/2013 05/17/2014 Overview: 09/23/13 - needs diabetic teaching & hbA1c - KJ Short interval between pregn ancies complicating , antepartum 08/12/2013 05/17/2014 Overview: 08/12/2013She delivered her previous child February 05, 2013. TKRN History of gestational diabe jaja in prior , currently 08/12/2013 05/17/2014 Overview: 08/18/13 - 3hr GTT ordered - KJ 08/12/2013She has a history of gestational diabetes with her last . One-hour GCT ordered by Dr. Alvarez. TKRN History of labor 08/12/2013 015 Overview: 08/12/2013 history of labor with last beginning at 29 weeks.TKRN Asthma, mild persistent 07/06/2013 05/17/19 15 Overview: 08/12/2013Patient has a history of asthma treated by Dr. Ramirez. She uses an albuterol inhaler when necessary. TKRN Adjustment disorder with mixed anxiety and depre ssed mood 07/06/2013 05/17/2014 Overview: 08/12/2013Pt has a history of depression diagnosed at age 17. She has been off medication for 2 weeks . She believes she is doing well off medication. Discussed increased risks of depression during and and importance of reporting the development or worsening of symptoms should they occur. Pt denies ever having any suicidal thoughts or tendencies or thoughts of hurting others. Patient denies any depression. TKRN GBS (group B Streptococcus c arrnanette), +RV culture, currently 01/19/2013 03/20/2013 Gestational diabetes mellitus in childbirth, t controlled 12/31/2012 03/20/2013 contractions 12/03/2012 03/20/2013 Overview: - was 1-2cm dilated, admitted overnight obs and given BMZ x 2, no cervical change, stable. Federica Escobar MD Gestational thrombocytopenia 11/21/2012 Overview: Platelets 148 at 28 weeks Abnormal glucose complicating 11/22/19 13 03/20/2013 Overview: Ordered 3 hour gtt Exposure to parvovirus 11/15/2012 3 Overview: November 15, 2012 IGM and IGG neg during acute illness. Recommend repeat testing in 10 days and 3-4 weeks. May need MFM consult and US monitoring. Kate Castrejon MD Supervision of other normal 09/02/2012 03/20/2013 Overview: Boy on us- Anxiety 08/04/2012 03/20/2013 History of depression 07/22/2012 03/20/2013 Overview: 07/22/2012Pt has a history of depression diagnosed at age 17. She has been off medication for 8 years . She believes she is doing well off medication. Discussed increased risks of depression during and and importance of reporting the development or worsening of symptoms should they occur. Pt denies ever having any suicidal thoughts or tendencies or thoughts of hurting others Immunization due 07/22/2012 03/20/2013 Overview: 07/22/2012tetanus vaccine is not up to date Backache, unspecified 05/03/2011 03/20/2013 Asthma 10/28/2009 03/20/2013 Overview: 07/22/2012Patient has a history of asthma treated by Dr. Ramirez. She uses an albuterol inhaler when necessary. . documented as of this encounter (statuses as of 09/12/2022) [facility] History of Past illness Narrative* Problem Noted Date Resolved Date 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 aura and without status migrainosus 01/18/2017 11/18/2017 Gestational diabetes 09/23/2013 05/17/2014 Overview: 09/23/13 - needs diabetic teaching & hbA1c - KJ Short interval between pregn ancies complicating , antepartum 08/12/2013 05/17/2014 Overview: 08/12/2013She delivered her previous child February 05, 2013. TKRN History of gestational diabe jaja in prior , currently 08/12/2013 05/17/2014 Overview: 08/18/13 - 3hr GTT ordered - KJ 08/12/2013She has a history of gestational diabetes with her last . One-hour GCT ordered by Dr. Alvarez. TKRN History of labor 08/12/2013 015 Overview: 08/12/2013 history of labor with last beginning at 29 weeks.TKRN Asthma, mild persistent 07/06/2013 05/17/19 15 Overview: 08/12/2013Patient has a history of asthma treated by Dr. Ramirez. She uses an albuterol inhaler when necessary. TKRN Adjustment disorder with mixed anxiety and depre ssed mood 07/06/2013 05/17/2014 Overview: 08/12/2013Pt has a history of depression diagnosed at age 17. She has been off medication for 2 weeks . She believes she is doing well off medication. Discussed increased risks of depression during and and importance of reporting the development or worsening of symptoms should they occur. Pt denies ever having any suicidal thoughts or tendencies or thoughts of hurting others. Patient denies any depression. TKRN GBS (group B Streptococcus c arrier), +RV culture, currently 01/19/2013 03/20/2013 Gestational diabetes mellitus in childbirth, t controlled 12/31/2012 03/20/2013 contractions 12/03/2012 03/20/2013 Overview: - was 1-2cm dilated, admitted overnight obs and given BMZ x 2, no cervical change, stable. Federica Escobar MD Gestational thrombocytopenia 11/21/2012 Overview: Platelets 148 at 28 weeks Abnormal glucose complicating 11/22/19 13 03/20/2013 Overview: Ordered 3 hour gtt Exposure to parvovirus 11/15/2012 3 Overview: November 15, 2012 IGM and IGG neg during acute illness. Recommend repeat testing in 10 days and 3-4 weeks. May need MFM consult and US monitoring. Kate Castrejon MD Supervision of other normal 09/02/2012 03/20/2013 Overview: Boy on us- Anxiety 08/04/2012 03/20/2013 History of depression 07/22/2012 03/20/2013 Overview: 07/22/2012Pt has a history of depression diagnosed at age 17. She has been off medication for 8 years . She believes she is doing well off medication. Discussed increased risks of depression during and and importance of reporting the development or worsening of symptoms should they occur. Pt denies ever having any suicidal thoughts or tendencies or thoughts of hurting others Immunization due 07/22/2012 03/20/2013 Overview: 07/22/2012tetanus vaccine is not up to date Backache, unspecified 05/03/2011 03/20/2013 Asthma 10/28/2009 03/20/2013 Overview: 07/22/2012Patient has a history of asthma treated by Dr. Ramirez. She uses an albuterol inhaler when necessary. . documented as of this encounter (statuses as of 09/20/2022) [facility] History of Past illness Narrative* Problem Noted Date Resolved Date 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 aura and without status migrainosus 01/18/2017 11/18/2017 Gestational diabetes 09/23/2013 05/17/2014 Overview: 09/23/13 - needs diabetic teaching & hbA1c - KJ Short interval between pregn ancies complicating , antepartum 08/12/2013 05/17/2014 Overview: 08/12/2013She delivered her previous child February 05, 2013. TKRN History of gestational diabe jaja in prior , currently 08/12/2013 05/17/2014 Overview: 08/18/13 - 3hr GTT ordered - KJ 08/12/2013She has a history of gestational diabetes with her last . One-hour GCT ordered by Dr. Alvarez. TKRN History of labor 08/12/2013 015 Overview: 08/12/2013 history of labor with last beginning at 29 weeks.TKRN Asthma, mild persistent 07/06/2013 05/17/19 15 Overview: 08/12/2013Patient has a history of asthma treated by Dr. Ramirez. She uses an albuterol inhaler when necessary. TKRN Adjustment disorder with mixed anxiety and depre ssed mood 07/06/2013 05/17/2014 Overview: 08/12/2013Pt has a history of depression diagnosed at age 17. She has been off medication for 2 weeks . She believes she is doing well off medication. Discussed increased risks of depression during and and importance of reporting the development or worsening of symptoms should they occur. Pt denies ever having any suicidal thoughts or tendencies or thoughts of hurting others. Patient denies any depression. TKRN GBS (group B Streptococcus c arrier), +RV culture, currently 01/19/2013 03/20/2013 Gestational diabetes mellitus in childbirth, t controlled 12/31/2012 03/20/2013 contractions 12/03/2012 03/20/2013 Overview: - was 1-2cm dilated, admitted overnight obs and given BMZ x 2, no cervical change, stable. Federica Escobar MD Gestational thrombocytopenia 11/21/2012 Overview: Platelets 148 at 28 weeks Abnormal glucose complicating 11/22/19 13 03/20/2013 Overview: Ordered 3 hour gtt Exposure to parvovirus 11/15/2012 3 Overview: November 15, 2012 IGM and IGG neg during acute illness. Recommend repeat testing in 10 days and 3-4 weeks. May need MFM consult and US monitoring. Kate Castrejon MD Supervision of other normal 09/02/2012 03/20/2013 Overview: Boy on us- Anxiety 08/04/2012 03/20/2013 History of depression 07/22/2012 03/20/2013 Overview: 07/22/2012Pt has a history of depression diagnosed at age 17. She has been off medication for 8 years . She believes she is doing well off medication. Discussed increased risks of depression during and and importance of reporting the development or worsening of symptoms should they occur. Pt denies ever having any suicidal thoughts or tendencies or thoughts of hurting others Immunization due 07/22/2012 03/20/2013 Overview: 07/22/2012tetanus vaccine is not up to date Backache, unspecified 05/03/2011 03/20/2013 Asthma 10/28/2009 03/20/2013 Overview: 07/22/2012Patient has a history of asthma treated by Dr. Ramirez. She uses an albuterol inhaler when necessary. . documented as of this encounter (statuses as of 09/26/2022) [facility] History of Past illness Narrative* Problem Noted Date Resolved Date 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 aura and without status migrainosus 01/18/2017 11/18/2017 Gestational diabetes 09/23/2013 05/17/2014 Overview: 09/23/13 - needs diabetic teaching & hbA1c - KJ Short interval between pregn ancies complicating , antepartum 08/12/2013 05/17/2014 Overview: 08/12/2013She delivered her previous child February 05, 2013. TKRN History of gestational diabe jaja in prior , currently 08/12/2013 05/17/2014 Overview: 08/18/13 - 3hr GTT ordered - KJ 08/12/2013She has a history of gestational diabetes with her last . One-hour GCT ordered by Dr. Alvarez. TKRN History of labor 08/12/2013 015 Overview: 08/12/2013 history of labor with last beginning at 29 weeks.TKRN Asthma, mild persistent 07/06/2013 05/17/19 15 Overview: 08/12/2013Patient has a history of asthma treated by Dr. Ramirez. She uses an albuterol inhaler when necessary. TKRN Adjustment disorder with mixed anxiety and depre ssed mood 07/06/2013 05/17/2014 Overview: 08/12/2013Pt has a history of depression diagnosed at age 17. She has been off medication for 2 weeks . She believes she is doing well off medication. Discussed increased risks of depression during and and importance of reporting the development or worsening of symptoms should they occur. Pt denies ever having any suicidal thoughts or tendencies or thoughts of hurting others. Patient denies any depression. TKRN GBS (group B Streptococcus c arrier), +RV culture, currently 01/19/2013 03/20/2013 Gestational diabetes mellitus in childbirth, t controlled 12/31/2012 03/20/2013 contractions 12/03/2012 03/20/2013 Overview: - was 1-2cm dilated, admitted overnight obs and given BMZ x 2, no cervical change, stable. Federica Escobar MD Gestational thrombocytopenia 11/21/2012 Overview: Platelets 148 at 28 weeks Abnormal glucose complicating 11/22/19 13 03/20/2013 Overview: Ordered 3 hour gtt Exposure to parvovirus 11/15/2012 3 Overview: November 15, 2012 IGM and IGG neg during acute illness. Recommend repeat testing in 10 days and 3-4 weeks. May need MFM consult and US monitoring. Kate Castrejon MD Supervision of other normal 09/02/2012 03/20/2013 Overview: Boy on us- Anxiety 08/04/2012 03/20/2013 History of depression 07/22/2012 03/20/2013 Overview: 07/22/2012Pt has a history of depression diagnosed at age 17. She has been off medication for 8 years . She believes she is doing well off medication. Discussed increased risks of depression during and and importance of reporting the development or worsening of symptoms should they occur. Pt denies ever having any suicidal thoughts or tendencies or thoughts of hurting others Immunization due 07/22/2012 03/20/2013 Overview: 07/22/2012tetanus vaccine is not up to date Backache, unspecified 05/03/2011 03/20/2013 Asthma 10/28/2009 03/20/2013 Overview: 07/22/2012Patient has a history of asthma treated by Dr. Ramirez. She uses an albuterol inhaler when necessary. . documented as of this encounter (statuses as of 10/01/2022) [facility] History of Past illness Narrative* Problem Noted Date Resolved Date 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 aura and without status migrainosus 01/18/2017 11/18/2017 Gestational diabetes 09/23/2013 05/17/2014 Overview: 09/23/13 - needs diabetic teaching & hbA1c - KJ Short interval between pregn ancies complicating , antepartum 08/12/2013 05/17/2014 Overview: 08/12/2013She delivered her previous child February 05, 2013. TKRN History of gestational diabe jaja in prior , currently 08/12/2013 05/17/2014 Overview: 08/18/13 - 3hr GTT ordered - KJ 08/12/2013She has a history of gestational diabetes with her last . One-hour GCT ordered by Dr. Alvarez. TKRN History of labor 08/12/2013 015 Overview: 08/12/2013 history of labor with last beginning at 29 weeks.TKRN Asthma, mild persistent 07/06/2013 05/17/19 15 Overview: 08/12/2013Patient has a history of asthma treated by Dr. Ramirez. She uses an albuterol inhaler when necessary. TKRN Adjustment disorder with mixed anxiety and depre ssed mood 07/06/2013 05/17/2014 Overview: 08/12/2013Pt has a history of depression diagnosed at age 17. She has been off medication for 2 weeks . She believes she is doing well off medication. Discussed increased risks of depression during and and importance of reporting the development or worsening of symptoms should they occur. Pt denies ever having any suicidal thoughts or tendencies or thoughts of hurting others. Patient denies any depression. TKRN GBS (group B Streptococcus c arrier), +RV culture, currently 01/19/2013 03/20/2013 Gestational diabetes mellitus in childbirth, t controlled 12/31/2012 03/20/2013 contractions 12/03/2012 03/20/2013 Overview: - was 1-2cm dilated, admitted overnight obs and given BMZ x 2, no cervical change, stable. Federica Escobar MD Gestational thrombocytopenia 11/21/2012 Overview: Platelets 148 at 28 weeks Abnormal glucose complicating 11/22/19 13 03/20/2013 Overview: Ordered 3 hour gtt Exposure to parvovirus 11/15/2012 3 Overview: November 15, 2012 IGM and IGG neg during acute illness. Recommend repeat testing in 10 days and 3-4 weeks. May need MFM consult and US monitoring. Kate Castrejon MD Supervision of other normal 09/02/2012 03/20/2013 Overview: Boy on us- Anxiety 08/04/2012 03/20/2013 History of depression 07/22/2012 03/20/2013 Overview: 07/22/2012Pt has a history of depression diagnosed at age 17. She has been off medication for 8 years . She believes she is doing well off medication. Discussed increased risks of depression during and and importance of reporting the development or worsening of symptoms should they occur. Pt denies ever having any suicidal thoughts or tendencies or thoughts of hurting others Immunization due 07/22/2012 03/20/2013 Overview: 07/22/2012tetanus vaccine is not up to date Backache, unspecified 05/03/2011 03/20/2013 Asthma 10/28/2009 03/20/2013 Overview: 07/22/2012Patient has a history of asthma treated by Dr. Ramirez. She uses an albuterol inhaler when necessary. . documented as of this encounter (statuses as of 10/03/2022) [facility] History of Past illness Narrative* Problem Noted Date Resolved Date 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 aura and without status migrainosus 01/18/2017 11/18/2017 Gestational diabetes 09/23/2013 05/17/2014 Overview: 09/23/13 - needs diabetic teaching & hbA1c - KJ Short interval between pregn ancies complicating , antepartum 08/12/2013 05/17/2014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 EVENT MONITOR, CARDIAC Reema Alaniz DO [address] [place] [address] [facility] [employer] [address] [place] [address] Reason Comments Refill Request Reason Comments Received Outside Medical Records Gastric biopsy report from [facility] Reason Onset Date Comments Refill Request 10/04/2021 Reason Comments Ear Problem Bilateral ear pain s tarted about a month ago Reason Comments Outside Lab Results [facility] Reason Comments Received Outside Medical Records [facility] 07/18/22 Reason Comments Received Outside Medical Records [facility] 08/13/22 Reason Comments Abdominal Pain Reason Comments Post Op Follow Up 08/23 laparoscopic ch olecystectomy with cholangiograms Reason Comments Received Outside Medical Records [facility] 09/19/22 Reason Comments Outside Lab Results [facility] 09/26/22 Reason Comments Received Outside Medical Records [facility] Daniel direct 09/26/2022 Reason Comments Received Outside Medical Records [facility] Visit summary 12/18/2022 6 week f/u lap chol Reason Comments Outside Lab Results [facility] 12/24 Reason Comments Received Outside Medical Records [facility] 02/22/2023 Source Comments (unrecognize d section and content) In the event this informatio n is protected by the Federal Confidentiality of Alcohol and Drug Abuse Patient Records regulations: The Federal rules restrict any use of the information to criminally investigate or prosecute any alcohol or drug abuse patient.[facility] the event this information is protected by the Federal Confidentiality of Alcohol and Drug Abuse Patient Records regulations: The Federal rules restrict any use of the information to criminally investigate or prosecute any alcohol or drug abuse patient.[facility] the event this information is protected by the Federal Confidentiality of Alcohol and Drug Abuse Patient Records regulations: The Federal rules restrict any use of the information to criminally investigate or prosecute any alcohol or drug abuse patient.[facility] the event this information is protected by the Federal Confidentiality of Alcohol and Drug Abuse Patient Records regulations: The Federal rules restrict any use of the information to criminally investigate or prosecute any alcohol or drug abuse patient.[facility] the event this information is protected by the Federal Confidentiality of Alcohol and Drug Abuse Patient Records regulations: The Federal rules restrict any use of the information to criminally investigate or prosecute any alcohol or drug abuse patient.[facility] Hospital[facility] the event this information is protected by the Federal Confidentiality of Alcohol and Drug Abuse Patient Records regulations: The Federal rules restrict any use of the information to criminally investigate or prosecute any alcohol or drug abuse patient.[facility] HospitalIn the event this information is protected by the Federal Confidentiality of Alcohol and Drug Abuse Patient Records regulations: The Federal rules restrict any use of the information to criminally investigate or prosecute any alcohol or drug abuse patient.[facility] HospitalIn the event this information is protected by the Federal Confidentiality of Alcohol and Drug Abuse Patient Records regulations: The Federal rules restrict any use of the information to criminally investigate or prosecute any alcohol or drug abuse patient.[facility] HospitalIn the event this information is protected by the Federal Confidentiality of Alcohol and Drug Abuse Patient Records regulations: The Federal rules restrict any use of the information to criminally investigate or prosecute any alcohol or drug abuse patient.[facility] HospitalIn the event this information is protected by the Federal Confidentiality of Alcohol and Drug Abuse Patient Records regulations: The Federal rules restrict any use of the information to criminally investigate or prosecute any alcohol or drug abuse patient.[facility] HospitalIn the event this information is protected by the Federal Confidentiality of Alcohol and Drug Abuse Patient Records regulations: The Federal rules restrict any use of the information to criminally investigate or prosecute any alcohol or drug abuse patient.[facility] HospitalIn the event this information is protected by the Federal Confidentiality of Alcohol and Drug Abuse Patient Records regulations: The Federal rules restrict any use of the information to criminally investigate or prosecute any alcohol or drug abuse patient.[facility] HospitalIn the event this information is protected by the Federal Confidentiality of Alcohol and Drug Abuse Patient Records regulations: The Federal rules restrict any use of the information to criminally investigate or prosecute any alcohol or drug abuse patient.[facility] HospitalIn the event this information is protected by the Federal Confidentiality of Alcohol and Drug Abuse Patient Records regulations: The Federal rules restrict any use of the information to criminally investigate or prosecute any alcohol or drug abuse patient.[facility] HospitalIn the event this information is protected by the Federal Confidentiality of Alcohol and Drug Abuse Patient Records regulations: The Federal rules restrict any use of the information to criminally investigate or prosecute any alcohol or drug abuse patient.[facility] HospitalIn the event this information is protected by the Federal Confidentiality of Alcohol and Drug Abuse Patient Records regulations: The Federal rules restrict any use of the information to criminally investigate or prosecute any alcohol or drug abuse patient.[facility] HospitalIn the event this information is protected by the Federal Confidentiality of Alcohol and Drug Abuse Patient Records regulations: The Federal rules restrict any use of the information to criminally investigate or prosecute any alcohol or drug abuse patient.[facility] HospitalIn the event this information is protected by the Federal Confidentiality of Alcohol and Drug Abuse Patient Records regulations: The Federal rules restrict any use of the information to criminally investigate or prosecute any alcohol or drug abuse patient.[facility] HospitalIn the event this information is protected by the Federal Confidentiality of Alcohol and Drug Abuse Patient Records regulations: The Federal rules restrict any use of the information to criminally investigate or prosecute any alcohol or drug abuse patient.[facility] HospitalIn the event this information is protected by the Federal Confidentiality of Alcohol and Drug Abuse Patient Records regulations: The Federal rules restrict any use of the information to criminally investigate or prosecute any alcohol or drug abuse patient.[facility] HospitalIn the event this information is protected by the Federal Confidentiality of Alcohol and Drug Abuse Patient Records regulations: The Federal rules restrict any use of the information to criminally investigate or prosecute any alcohol or drug abuse patient.[facility] HospitalIn the event this information is protected by the Federal Confidentiality of Alcohol and Drug Abuse Patient Records regulations: The Federal rules restrict any use of the information to criminally investigate or prosecute any alcohol or drug abuse patient.[facility] HospitalIn the event this information is protected by the Federal Confidentiality of Alcohol and Drug Abuse Patient Records regulations: The Federal rules restrict any use of the information to criminally investigate or prosecute any alcohol or drug abuse patient.[facility] HospitalIn the event this information is protected by the Federal Confidentiality of Alcohol and Drug Abuse Patient Records regulations: The Federal rules restrict any use of the information to criminally investigate or prosecute any alcohol or drug abuse patient.[facility] HospitalIn the event this information is protected by the Federal Confidentiality of Alcohol and Drug Abuse Patient Records regulations: The Federal rules restrict any use of the information to criminally investigate or prosecute any alcohol or drug abuse patient.[facility] HospitalIn the event this information is protected by the Federal Confidentiality of Alcohol and Drug Abuse Patient Records regulations: The Federal rules restrict any use of the information to criminally investigate or prosecute any alcohol or drug abuse patient.[facility] Care Teams (unrecognized sec tion and content) Soda Fountain Operator Relationship Specialty Start Date End Date Lenora Ramirez MD [facility] [place] [address] PCP - General Family Practice 06/13/10 Soda Fountain Operator Relationship Specialty Start Date End Date Lenora Ramirez MD [address] [place] [id number] PCP - General Family Practice 06/13/10 Soda Fountain Operator Relationship Specialty Start Date End Date Lenora Ramirez MD [address] [place] [id number] PCP - General Family Practice 06/13/10 Soda Fountain Operator Relationship Specialty Start Date End Date Lenora Ramirez MD [address] [place] [address] [place] [address] PCP - General Family Medicine 06/13/10 Soda Fountain Operator Relationship Specialty Start Date End Date Lenora Ramirez MD [address] [place] [address] [place] [address] PCP - General Family Medicine 06/13/10 Soda Fountain Operator Relationship Specialty Start Date End Date Lenora Ramirez MD [address] [place] [address] [place] [address] PCP - General Family Medicine 06/13/10 Soda Fountain Operator Relationship Specialty Start Date End Date Lenora Ramirez MD [address] [place] [address] [place] [address] PCP - General Family Medicine 06/13/10 Soda Fountain Operator Relationship Specialty Start Date End Date Lenora Ramirez MD [address] [place] [address] PCP - General Family Medicine 06/13/10 Soda Fountain Operator Relationship Specialty Start Date End Date Lenora Ramirez MD [address] [place] [address] PCP - General Family Medicine 06/13/10 Soda Fountain Operator Relationship Specialty Start Date End Date Lenora Ramirez MD [address] [place] [address] PCP - General Family Medicine 06/13/10 Soda Fountain Operator Relationship Specialty Start Date End Date Lenora Ramirez MD [address] [place] [address] PCP - General Family Medicine 06/13/10 Soda Fountain Operator Relationship Specialty Start Date End Date Lenora Ramirez MD [address] [place] [address] PCP - General Family Medicine 06/13/10 Soda Fountain Operator Relationship Specialty Start Date End Date Lenora Ramirez MD [address] [place] [address] PCP - General Family Medicine 06/13/10 Soda Fountain Operator Relationship Specialty Start Date End Date Lenora Ramirez MD [address] [place] [address] PCP - General Family Medicine 06/13/10 Soda Fountain Operator Relationship Specialty Start Date End Date Lenora Ramirez MD [address] [place] [address] PCP - General Family Medicine 06/13/10 Soda Fountain Operator Relationship Specialty Start Date End Date Lenora Ramirez MD [address] [place] [address] PCP - General Family Medicine 06/13/10 FOR RECORDS PERTAINING TO PATIENTS WHO ARE OR HAVE BEEN ENROLLED IN A CHEMICAL DEPENDENCY/SUBSTANCEABUSE PROGRAM, SOME INFORMATION MAY BE OMITTED. This clinical summary was aggregated from multiple sources. Caution should be exercised in using it in the provision of clinical care. This summary normalizes information from multiple sources, and as a consequence, information in this document may materially change the coding, format and clinical context of patient data. In addition, data may be omitted in some cases. CLINICAL DECISIONS SHOULD BE BASED ON THE PRIMARY CLINICAL RECORDS. [employer] provides no warranty or guarantee of the accuracy or completeness of information in this document.
[2023-04-19 17:35] LABS: Absolute Neutrophil Count 3.2 X10^3/uL (2.0-7.7); Basophil# 0.03 X10^3/uL; Basophil% 0.6 % (0-1); Eosinophil# 0.14 X10^3/uL; Eosinophils% 2.6 % (0-5); Hematocrit 42.9 % (37-47); Lymphocyte % 27.8 % (19-41); Mean Corp Hgb Conc 32.6 g/dL (32-36); Mean Corpuscular Hgb 32.1 pg (27.0-32.0); Mean Corpuscular Volume 98.4 fL (81-99); Mean Platelet Vol. 12.1 fl (6.2-12.0); Monocyte# 0.47 X10^3/uL; Monocyte% 8.7 % (0-10); NRBC Flagged by Analyzer 0 % (0-5); Neutrophil # 3.24 X10^3/uL (2.7-7.7); Neutrophil % 60.1 % (47-70); Platelet Count 152 K/mm3 (150-450); RBC Distribution Width CV 12.5 % (11.6-14.6); RBC Distribution Width SD 45.3 fl (35.1-43.9); Red Blood Count 4.36 M/mm3 (4.2-5.4); White Blood Count 5.4 K/mm3 (4.4-11.0)
[2023-04-19 18:00] LABS: AST(SGOT) 16 U/L (15-37); Alanine Aminotransfer ALT/SGPT 33 U/L (13-56); Albumin, Serum 3.7 g/dL (3.2-5.0); Alkaline Phosphatase 65 U/L (45-117); Anion Gap 5 (5-15); BUN 10 mg/dL (7-18); BUN/Creat Ratio 15.2 RATIO (10-20); Chloride 108 mmol/L (98-107); Creatinine, Serum 0.66 mg/dL (0.55-1.02); EST Glomerular Filtration Rate 107 mL/min (>60); Est Glom Filt Rate - Afr Amer 130 mL/min (>60); Globulin 3.8 g/dL (2.2-4.2); Glucose 89 mg/dL (74-106); Potassium 3.5 mmol/L (3.5-5.1); Protein, Total 7.5 g/dL (6.4-8.2); Sodium Level 139 mmol/L (136-145)
== END | disposition home or self-care (01) ==
LOC: MTLAB 16:38
PROVIDERS: PCP Family Medicine; Referring Provider Internal Medicine Rheumatology; Visit Provider Internal Medicine Rheumatology
DX: M06.4 Inflammatory polyarthropathy (principal); M79.7 Fibromyalgia; Z79.899 Other long term (current) drug therapy
CPT/HCPCS: 36415; 80053; 85025

== ENCOUNTER → 2023-06-20 | Outpatient (CLI) | payer OTHER, SELFPAY ==
[2023-06-20 15:34] LABS: Absolute Lymphocyte Count 3.69 X10^3/uL (0.83-4.51); Absolute Neutrophil Count 5.5 X10^3/uL (2.0-7.7); Basophil# 0.04 X10^3/uL; Basophil% 0.4 % (0-1); Eosinophil# 0.06 X10^3/uL; Eosinophils% 0.6 % (0-5); Lymphocyte # 3.69 X10^3/ul (0.83-4.51); Lymphocyte % 35.3 % (19-41); Mean Corp Hgb Conc 31.1 g/dL (32-36); Mean Corpuscular Hgb 31.2 pg (27.0-32.0); Mean Corpuscular Volume 100.2 fL (81-99); Monocyte# 1.19 X10^3/uL; Monocyte% 11.4 % (0-10); NRBC Flagged by Analyzer 0 % (0-5); Neutrophil # 5.45 X10^3/uL (2.7-7.7); Neutrophil % 52.1 % (47-70); Platelet Count 178 K/mm3 (150-450); RBC Distribution Width SD 44.4 fl (35.1-43.9); Red Blood Count 4.49 M/mm3 (4.2-5.4); White Blood Count 10.5 K/mm3 (4.4-11.0)
[2023-06-20 16:15] LABS: AST(SGOT) 20 U/L (15-37); Alanine Aminotransfer ALT/SGPT 45 U/L (13-56); Albumin, Serum 3.8 g/dL (3.2-5.0); Alkaline Phosphatase 62 U/L (45-117); Anion Gap 10 (5-15); BUN 9 mg/dL (7-18); Calcium,Total 9.1 mg/dL (8.5-10.1); Chloride 105 mmol/L (98-107); Creatinine, Serum 0.82 mg/dL (0.55-1.02); EST Glomerular Filtration Rate 83 mL/min (>60); Est Glom Filt Rate - Afr Amer 100 mL/min (>60); Globulin 3.9 g/dL (2.2-4.2); Glucose 69 mg/dL (74-106); Potassium 3.6 mmol/L (3.5-5.1); Protein, Total 7.7 g/dL (6.4-8.2); Sodium Level 140 mmol/L (136-145)
--- OUTSIDE RECORDS SUMMARY | 2023-06-20 20:02 | XMS RPT_ITS | CCD ---
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 migraine without aura, intractable, without status migrainosus- Primary 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 aura and without status migrainosus Chronic migraine without aura, with intractable migraine, so stated, without mention of status migrainosus Chronic migraine without aura, with intractable migraine, so stated, with status migrainosus [facility] Diagnosis Chronic migraine without aura, intractable, without status migrainosus- Primary 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 aura and without status migrainosus Chronic migraine without aura, with intractable migraine, so stated, without mention of status migrainosus Chronic migraine without aura, with intractable migraine, so stated, with status migrainosus [facility] Diagnosis 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 aura and with status migrainosus- Primary Chronic migraine without aura, with intractable migraine, so stated, with status migrainosus [facility] Diagnosis Chronic migraine without aura, intractable, without status migrainosus- Primary 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 aura and without status migrainosus Chronic migraine without aura, with intractable migraine, so stated, without mention of status migrainosus Chronic migraine without aura, with intractable migraine, so stated, with status migrainosus documented in this encounter [facility] Summary Purpose Family History No Family History Records FoundNo Family History Records FoundNo Family History Records FoundNo Family History Records FoundNo Family History Records FoundNo Family History Records FoundNo Family History Records FoundNo Family History Records FoundNo Family History Records Found Advance Directives Documents on File Type Date 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 Follow-up lipids for further recommendations. Johnie Alaniz DO 07/24/2018 2:21 PM documented in this encounter Assessments Diagnosis PVC's (premature ventricular contractions)- Primary Other premature beats Hypercholesterolemia Pure hypercholesterolemia Family history of coronary artery disease Family history of ischemic heart disease Palpitations Diagnosis Palpitations Additional Source Comments INFORMATION SOURCE (unrecogn ized section and content) DATE CREATED AUTHOR AUTHOR'S ORGANIZ ATION 09/30/2017 [facility] [employer] DATE CREATED AUTHOR AUTHOR'S ORGANIZ ATION 07/25/2018 [facility] DATE CREATED AUTHOR AUTHOR'S ORGANIZ ATION 09/14/2018 [facility] [employer] DATE CREATED AUTHOR AUTHOR'S ORGANIZ ATION 03/25/2020 [facility] ([place]) DATE CREATED AUTHOR AUTHOR'S ORGANIZ ATION 10/03/2020 [facility] DATE CREATED AUTHOR AUTHOR'S ORGANIZ ATION 03/26/2021 [facility] DATE CREATED AUTHOR AUTHOR'S ORGANIZ ATION 09/16/2022 [facility] DATE CREATED AUTHOR AUTHOR'S ORGANIZ ATION 06/19/2023 [facility] Reason for Visit (unrecogniz ed section and content) Specialty Diagnoses / Procedures Referred By Pamela jimenez Referred To Contact Neurology / HEADACHE Diagnoses DHE #1 Procedures INFUSION HEADACHE Nakul Mata DO [address] [place] [address] Neur Headache Main [address] [place] [address] Referral ID Status Reason Start Date Expiration Date V isits Requested Visits Authorized [id number] Authorized 06/14/2023 09/12/2023 1 99 Reason Comments Infusion Headache Specialty Diagnoses / Procedures Referred By Contac t Referred To Contact Neurology / HEADACHE Diagnoses DHE #1 Procedures INFUSION HEADACHE Nakul Mata, DO [address] [place] [address] Neur Headache Main [address] [place] [address] Referral ID Status Reason Start Date Expiration Date V isits Requested Visits Authorized [id number] Authorized 06/14/2023 09/12/2023 1 99 Reason Comments Follow-up 6 month-complains of normal palpitations Status Reason Specialty Diagnoses / Procedures Referred By Contact Referred To Contact Closed Cardiovascular Medicine Diagnoses Palpitations Procedures EVENT MONITOR, CARDIAC Johnie Alaniz DO [address] [place] [address] [facility] 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 [address] [place] [address] Reason Comments Refill Request Reason Comments Received Outside Medical Records Gastric biopsy report from [facility] Reason Onset Date Comments Refill Request 10/04/2021 Reason Comments Ear Problem Bilateral ear pain s tarted about a month ago Reason Comments Outside Lab Results [facility] Reason Comments Received Outside Medical Records [facility] 07/18/22 Reason Comments Received Outside Medical Records [facility] 08/13/22 Reason Comments Abdominal Pain Reason Comments Post Op Follow Up 08/23 laparoscopic ch olecystectomy with cholangiograms Reason Comments Received Outside Medical Records [facility] 09/19/22 Reason Comments Outside Lab Results [facility] 09/26/22 Reason Comments Received Outside Medical Records [facility] Daniel direct 09/26/2022 Reason Comments Received Outside Medical Records [facility] Visit summary 12/18/2022 6 week f/u lap chol Reason Comments Outside Lab Results [facility] 12/24 Reason Comments Received Outside Medical Records [facility] 02/22/2023 Reason Comments Received Outside Medical Records [facility] EGD report 05/13/23 Reason Comments Follow Up Migraines, have not been seen since 2018 Specialty Diagnoses / Procedures Referred By Contac t Referred To Contact Neurology Diagnoses 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 aura and without status migrainosus Procedures CONSULT TO NEUROLOGY OFFICE[facility] [address] [place] [address] [place] [address] Referral ID Status Reason Start Date Expiration Date V isits Requested Visits Authorized [id number] Closed PCP Requested Referral 05/08/2023 05/07/2024 1 1 Reason Comments Appointment Headache Infusions Reason Comments Chronic Migraine Reason Comments Headache Infusion Source Comments (unrecognize d section and content) In the event this informatio n is protected by the Federal Confidentiality of Alcohol and Drug Abuse Patient Records regulations: The Federal rules restrict any use of the information to criminally investigate or prosecute any alcohol or drug abuse patient.[facility] the event this information is protected by the Federal Confidentiality of Alcohol and Drug Abuse Patient Records regulations: The Federal rules restrict any use of the information to criminally investigate or prosecute any alcohol or drug abuse patient.[facility] the event this information is protected by the Federal Confidentiality of Alcohol and Drug Abuse Patient Records regulations: The Federal rules restrict any use of the information to criminally investigate or prosecute any alcohol or drug abuse patient.[facility] the event this information is protected by the Federal Confidentiality of Alcohol and Drug Abuse Patient Records regulations: The Federal rules restrict any use of the information to criminally investigate or prosecute any alcohol or drug abuse patient.[facility] the event this information is protected by the Federal Confidentiality of Alcohol and Drug Abuse Patient Records regulations: The Federal rules restrict any use of the information to criminally investigate or prosecute any alcohol or drug abuse patient.[facility] the event this information is protected by the Federal Confidentiality of Alcohol and Drug Abuse Patient Records regulations: The Federal rules restrict any use of the information to criminally investigate or prosecute any alcohol or drug abuse patient.[facility] the event this information is protected by the Federal Confidentiality of Alcohol and Drug Abuse Patient Records regulations: The Federal rules restrict any use of the information to criminally investigate or prosecute any alcohol or drug abuse patient.[facility] the event this information is protected by the Federal Confidentiality of Alcohol and Drug Abuse Patient Records regulations: The Federal rules restrict any use of the information to criminally investigate or prosecute any alcohol or drug abuse patient.[facility] the event this information is protected by the Federal Confidentiality of Alcohol and Drug Abuse Patient Records regulations: The Federal rules restrict any use of the information to criminally investigate or prosecute any alcohol or drug abuse patient.[facility] the event this information is protected by the Federal Confidentiality of Alcohol and Drug Abuse Patient Records regulations: The Federal rules restrict any use of the information to criminally investigate or prosecute any alcohol or drug abuse patient.[facility] the event this information is protected by the Federal Confidentiality of Alcohol and Drug Abuse Patient Records regulations: The Federal rules restrict any use of the information to criminally investigate or prosecute any alcohol or drug abuse patient.[facility] the event this information is protected by the Federal Confidentiality of Alcohol and Drug Abuse Patient Records regulations: The Federal rules restrict any use of the information to criminally investigate or prosecute any alcohol or drug abuse patient.[facility] the event this information is protected by the Federal Confidentiality of Alcohol and Drug Abuse Patient Records regulations: The Federal rules restrict any use of the information to criminally investigate or prosecute any alcohol or drug abuse patient.[facility] the event this information is protected by the Federal Confidentiality of Alcohol and Drug Abuse Patient Records regulations: The Federal rules restrict any use of the information to criminally investigate or prosecute any alcohol or drug abuse patient.[facility] the event this information is protected by the Federal Confidentiality of Alcohol and Drug Abuse Patient Records regulations: The Federal rules restrict any use of the information to criminally investigate or prosecute any alcohol or drug abuse patient.[facility] the event this information is protected by the Federal Confidentiality of Alcohol and Drug Abuse Patient Records regulations: The Federal rules restrict any use of the information to criminally investigate or prosecute any alcohol or drug abuse patient.[facility] the event this information is protected by the Federal Confidentiality of Alcohol and Drug Abuse Patient Records regulations: The Federal rules restrict any use of the information to criminally investigate or prosecute any alcohol or drug abuse patient.[facility] the event this information is protected by the Federal Confidentiality of Alcohol and Drug Abuse Patient Records regulations: The Federal rules restrict any use of the information to criminally investigate or prosecute any alcohol or drug abuse patient.[facility] the event this information is protected by the Federal Confidentiality of Alcohol and Drug Abuse Patient Records regulations: The Federal rules restrict any use of the information to criminally investigate or prosecute any alcohol or drug abuse patient.[facility] System[facility] the event this information is protected by the Federal Confidentiality of Alcohol and Drug Abuse Patient Records regulations: The Federal rules restrict any use of the information to criminally investigate or prosecute any alcohol or drug abuse patient.[facility] the event this information is protected by the Federal Confidentiality of Alcohol and Drug Abuse Patient Records regulations: The Federal rules restrict any use of the information to criminally investigate or prosecute any alcohol or drug abuse patient.[facility] the event this information is protected by the Federal Confidentiality of Alcohol and Drug Abuse Patient Records regulations: The Federal rules restrict any use of the information to criminally investigate or prosecute any alcohol or drug abuse patient.[facility] the event this information is protected by the Federal Confidentiality of Alcohol and Drug Abuse Patient Records regulations: The Federal rules restrict any use of the information to criminally investigate or prosecute any alcohol or drug abuse patient.[facility] the event this information is protected by the Federal Confidentiality of Alcohol and Drug Abuse Patient Records regulations: The Federal rules restrict any use of the information to criminally investigate or prosecute any alcohol or drug abuse patient.[facility] the event this information is protected by the Federal Confidentiality of Alcohol and Drug Abuse Patient Records regulations: The Federal rules restrict any use of the information to criminally investigate or prosecute any alcohol or drug abuse patient.[facility] the event this information is protected by the Federal Confidentiality of Alcohol and Drug Abuse Patient Records regulations: The Federal rules restrict any use of the information to criminally investigate or prosecute any alcohol or drug abuse patient.[facility] the event this information is protected by the Federal Confidentiality of Alcohol and Drug Abuse Patient Records regulations: The Federal rules restrict any use of the information to criminally investigate or prosecute any alcohol or drug abuse patient.[facility] the event this information is protected by the Federal Confidentiality of Alcohol and Drug Abuse Patient Records regulations: The Federal rules restrict any use of the information to criminally investigate or prosecute any alcohol or drug abuse patient.[facility] the event this information is protected by the Federal Confidentiality of Alcohol and Drug Abuse Patient Records regulations: The Federal rules restrict any use of the information to criminally investigate or prosecute any alcohol or drug abuse patient.[facility] SystemIn the event this information is protected by the Federal Confidentiality of Alcohol and Drug Abuse Patient Records regulations: The Federal rules restrict any use of the information to criminally investigate or prosecute any alcohol or drug abuse patient.[facility] System[facility] the event this information is protected by the Federal Confidentiality of Alcohol and Drug Abuse Patient Records regulations: The Federal rules restrict any use of the information to criminally investigate or prosecute any alcohol or drug abuse patient.[facility] the event this information is protected by the Federal Confidentiality of Alcohol and Drug Abuse Patient Records regulations: The Federal rules restrict any use of the information to criminally investigate or prosecute any alcohol or drug abuse patient.[facility] the event this information is protected by the Federal Confidentiality of Alcohol and Drug Abuse Patient Records regulations: The Federal rules restrict any use of the information to criminally investigate or prosecute any alcohol or drug abuse patient.[facility] the event this information is protected by the Federal Confidentiality of Alcohol and Drug Abuse Patient Records regulations: The Federal rules restrict any use of the information to criminally investigate or prosecute any alcohol or drug abuse patient.[facility] System[facility] the event this information is protected by the Federal Confidentiality of Alcohol and Drug Abuse Patient Records regulations: The Federal rules restrict any use of the information to criminally investigate or prosecute any alcohol or drug abuse patient.[facility] Care Teams (unrecognized sec tion and content) 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 Relationship Specialty Start Date End Date Lenora Ramirez MD [address] [place] [address] PCP - General Family Practice 06/13/10 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 Relationship Specialty Start Date End Date Lenora Ramirez MD [address] [place] [address] PCP - General Family Practice 06/13/10 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 Relationship Specialty Start Date End Date Lenora Ramirez MD [facility] [place] [address] PCP - General Family Practice 06/13/10 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 Relationship Specialty Start Date End Date Lenora Ramirez MD [facility] [place] [address] PCP - General Family Medicine 06/13/10 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 Relationship Specialty Start Date End Date Lenora Ramirez MD [facility] [place] [address] PCP - General Family Medicine 06/13/10 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 Relationship Specialty Start Date End Date Lenora Ramirez MD [address] [place] [address], [place] [address] PCP - General Family Medicine 06/13/10 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 Relationship Specialty Start Date End Date Lenora Ramirez MD [address] [place] [address], [place] [address] PCP - General Family Medicine 06/13/10 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 Relationship Specialty Start Date End Date Lenora Ramirez MD [address] [place] [address], [place] [address] PCP - General Family Medicine 06/13/10 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 Relationship Specialty Start Date End Date Lenora Ramirez MD [address] [place] [address], [place] [address] PCP - General Family Medicine 06/13/10 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 Relationship Specialty Start Date End Date Lenora Ramirez MD [address] [place] [address], [place] [address] PCP - General Family Medicine 06/13/10 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 Relationship Specialty Start Date End Date Lenora Ramirez MD [address] [place] [address], [place] [address] PCP - General Family Medicine 06/13/10 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 Relationship Specialty Start Date End Date Lenora Ramirez MD [address] [place] [address], [place] [address] PCP - General Family Medicine 06/13/10 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 Relationship Specialty Start Date End Date Lenora Ramirez MD [address] [facility] [place] [address] PCP - General Family Medicine 06/13/10 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 Relationship Specialty Start Date End Date Lenora Ramirez MD [address] [facility] [place] [address] PCP - General Family Medicine 06/13/10 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 Relationship Specialty Start Date End Date Lenoar Ramirez MD [address] [facility] [place] [address] PCP - General Family Medicine 06/13/10 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 Relationship Specialty Start Date End Date Lenora Ramirez MD [address] [facility] [place] [address] PCP - General Family Medicine 06/13/10 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 Relationship Specialty Start Date End Date Lenora Ramirez MD [address] [facility] [place] [address] PCP - General Family Medicine 06/13/10 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 Relationship Specialty Start Date End Date Lenora Ramirez MD [address] [facility] [place] [address] PCP - General Family Medicine 06/13/10 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 Relationship Specialty Start Date End Date Lenora Ramirez MD [address] [facility] [place] [address] PCP - General Family Medicine 06/13/10 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 Relationship Specialty Start Date End Date Lenora Ramirez MD [address] [place] [place] [address] PCP - General Family Medicine 06/13/10 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 Relationship Specialty Start Date End Date Lenora Ramirez MD [address] [place] [address] PCP - General Family Medicine 06/13/10 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 Relationship Specialty Start Date End Date Lenora Ramirez MD [address] [place], [place] [id number] PCP - General Family Medicine 06/13/10 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 Relationship Specialty Start Date End Date Lenora Ramirez MD [address] [place], [place] [id number] PCP - General Family Medicine 06/13/10 Inactive Administered Medications - up to 3 most recent administrations Administered Medications (un recognized section and content) Inactive Administered Medications - up to 3 most recent administrations Medication Order MAR Action Action Date Dose Rate Site dexAMETHasone sodium phosphate 4 mg injection (DECADRON) 4 mg, INTRAVENOUS, ONCE, 1 dose, On Sat06/18/23 at 1100 Given 06/18/2023 11:18 AM EDT 4 mg dihydroergotamine 0.5 mg in NaCl 0.9% 50 mL 0.5 mg, INTRAVENOUS, at 100 mL/hr, Administer over 30 Minutes, EVERY 30 MINUTES, 2 doses, First dose on Sat06/18/23 at 1100, Last dose on Sat06/18/23 at 1130, Hazardous Potential Reproductive Risk Drug: Use appropriate PPE. New Bag/Syringe/Bottle 06/18/2023 12:31 PM EDT 0.5 mg 100 mL/hr Inactive Administered Medications - up to 3 most recent administrations Medication Order MAR Action Action Date Dose Rate Site dexAMETHasone sodium phosphate 4 mg injection (DECADRON) 4 mg, INTRAVENOUS, ONCE, 1 dose, On Sat06/19/23 at 1030 Given 06/19/2023 10:59 AM EDT 4 mg dihydroergotamine 0.5 mg in NaCl 0.9% 50 mL 0.5 mg, INTRAVENOUS, at 100 mL/hr, Administer over 30 Minutes, EVERY 30 MINUTES, 2 doses, First dose on Sat06/19/23 at 1030, Last dose on Sat06/19/23 at 1100, Hazardous Potential Reproductive Risk Drug: Use appropriate PPE. New Bag/Syringe/Bottle 06/19/2023 1:17 PM EDT 0.5 mg 100 mL/hr FOR RECORDS PERTAINING TO PATIENTS WHO ARE [...] BE BASED ON THE PRIMARY CLINICAL RECORDS. [employer] provides no warranty or guarantee of the accuracy or completeness of information in this document.
== END | disposition home or self-care (01) ==
PROVIDERS: PCP Family Medicine; Referring Provider Internal Medicine Rheumatology; Visit Provider Internal Medicine Rheumatology
DX: M06.4 Inflammatory polyarthropathy (principal); M79.7 Fibromyalgia; Z79.899 Other long term (current) drug therapy
CPT/HCPCS: 36415; 80053; 85025

== ENCOUNTER → 2023-09-13 | Outpatient (CLI) | payer OTHER, SELFPAY ==
[2023-09-13 10:17] LABS: Absolute Lymphocyte Count 2.01 X10^3/uL (0.83-4.51); Absolute Neutrophil Count 2.7 X10^3/uL (2.0-7.7); Basophil# 0.03 X10^3/uL; Basophil% 0.6 % (0-1); Hematocrit 42.8 % (37-47); Hemoglobin 13.7 g/dL (12.0-15.0); Lymphocyte # 2.01 X10^3/ul (0.83-4.51); Lymphocyte % 37.2 % (19-41); Mean Corpuscular Hgb 31.6 pg (27.0-32.0); Mean Corpuscular Volume 98.6 fL (81-99); Mean Platelet Vol. 12.3 fl (6.2-12.0); Monocyte# 0.67 X10^3/uL; Monocyte% 12.4 % (0-10); NRBC Flagged by Analyzer 0 % (0-5); Neutrophil # 2.67 X10^3/uL (2.7-7.7); Neutrophil % 49.4 % (47-70); Platelet Count 164 K/mm3 (150-450); RBC Distribution Width CV 11.9 % (11.6-14.6); RBC Distribution Width SD 43.5 fl (35.1-43.9); Red Blood Count 4.34 M/mm3 (4.2-5.4); White Blood Count 5.4 K/mm3 (4.4-11.0)
[2023-09-13 11:02] LABS: ALB/GLOB Ratio 1.1 RATIO (0.9-2.4); AST(SGOT) 18 U/L (15-37); Alanine Aminotransfer ALT/SGPT 32 U/L (13-56); Albumin, Serum 3.9 g/dL (3.2-5.0); Alkaline Phosphatase 55 U/L (45-117); Anion Gap 9 (5-15); BUN 13 mg/dL (7-18); BUN/Creat Ratio 19.2 RATIO (10-20); Calcium,Total 9.4 mg/dL (8.5-10.1); Chloride 106 mmol/L (98-107); Creatinine, Serum 0.68 mg/dL (0.55-1.02); EST Glomerular Filtration Rate 103 mL/min (>60); Est Glom Filt Rate - Afr Amer 125 mL/min (>60); Globulin 3.4 g/dL (2.2-4.2); Glucose 81 mg/dL (74-106); Potassium 3.7 mmol/L (3.5-5.1); Protein, Total 7.3 g/dL (6.4-8.2); Sodium Level 139 mmol/L (136-145)
== END | disposition home or self-care (01) ==
LOC: MTLAB 07:25
PROVIDERS: PCP Family Medicine; Referring Provider Internal Medicine Rheumatology; Visit Provider Internal Medicine Rheumatology
DX: M06.4 Inflammatory polyarthropathy (principal); K76.0 Fatty (change of) liver, not elsewhere classified; Z79.899 Other long term (current) drug therapy
CPT/HCPCS: 36415; 80053; 85025

== ENCOUNTER → 2024-03-12 | Outpatient (CLI) | payer OTHER, MEDICAID, SELFPAY ==
[2024-03-12 10:16] LABS: Absolute Lymphocyte Count 1.46 X10^3/uL (0.83-4.51); Basophil# 0.04 X10^3/uL; Basophil% 0.8 % (0-1); Eosinophil# 0.11 X10^3/uL; Eosinophils% 2.2 % (0-5); Hematocrit 44.5 % (37-47); Hemoglobin 14.2 g/dL (12.0-15.0); Lymphocyte # 1.46 X10^3/ul (0.83-4.51); Lymphocyte % 28.9 % (19-41); Mean Corp Hgb Conc 31.9 g/dL (32-36); Mean Corpuscular Hgb 31.3 pg (27.0-32.0); Mean Corpuscular Volume 98.2 fL (81-99); Monocyte# 0.48 X10^3/uL; Monocyte% 9.5 % (0-10); NRBC Flagged by Analyzer 0 % (0-5); Neutrophil # 2.95 X10^3/uL (2.7-7.7); Neutrophil % 58.4 % (47-70); Platelet Count 149 K/mm3 (150-450); RBC Distribution Width CV 11.9 % (11.6-14.6); RBC Distribution Width SD 43.4 fl (35.1-43.9); Red Blood Count 4.53 M/mm3 (4.2-5.4); White Blood Count 5.1 K/mm3 (4.4-11.0)
[2024-03-12 10:45] LABS: Vitamin D,25 Hydroxy 34.5 ng/mL
[2024-03-12 10:48] LABS: ALB/GLOB Ratio 1.1 RATIO (0.9-2.4); AST(SGOT) 16 U/L (15-37); Alanine Aminotransfer ALT/SGPT 31 U/L (13-56); Albumin, Serum 3.9 g/dL (3.2-5.0); Alkaline Phosphatase 63 U/L (45-117); Anion Gap 6 (5-15); BUN 16 mg/dL (7-18); BUN/Creat Ratio 25.8 RATIO (10-20); Chloride 106 mmol/L (98-107); Cholesterol 170 mg/dL (200); Creatinine, Serum 0.62 mg/dL (0.55-1.02); EST Glomerular Filtration Rate 114 mL/min (>60); Est Glom Filt Rate - Afr Amer 138 mL/min (>60); Globulin 3.5 g/dL (2.2-4.2); Glucose 90 mg/dL (74-106); High Density Lipoprotein 47 mg/dL; Protein, Total 7.4 g/dL (6.4-8.2); Sodium Level 139 mmol/L (136-145); Triglycerides 60 mg/dL; Very Low Density Lipoprotein 12 mg/dL (5-40)
[2024-03-12 12:41] LABS: Hemoglobin A1c 5.1 % (3.8-5.6)
[2024-03-13 08:14] LABS: LDL, Direct 120295 119 mg/dL (0-99)
== END | disposition home or self-care (01) ==
PROVIDERS: PCP Family Medicine
DX: E78.5 Hyperlipidemia, unspecified (principal); M06.4 Inflammatory polyarthropathy; E11.9 Type 2 diabetes mellitus without complications; E03.9 Hypothyroidism, unspecified; E55.9 Vitamin D deficiency, unspecified; K76.0 Fatty (change of) liver, not elsewhere classified; Z79.899 Other long term (current) drug therapy
CPT/HCPCS: 36415; 80053; 80061; 82306; 83036; 83721; 84443; 85025

== ENCOUNTER → 2024-06-05 | Outpatient (CLI) | payer OTHER, MEDICAID, SELFPAY ==
[2024-06-05 10:21] LABS: Absolute Lymphocyte Count 1.47 X10^3/uL (0.83-4.51); Basophil# 0.03 X10^3/uL; Basophil% 0.7 % (0-1); Eosinophil# 0.01 X10^3/uL; Eosinophils% 0.2 % (0-5); Hematocrit 42.9 % (37-47); Lymphocyte # 1.47 X10^3/ul (0.83-4.51); Lymphocyte % 35.9 % (19-41); Mean Corp Hgb Conc 32.6 g/dL (32-36); Mean Corpuscular Hgb 31.7 pg (27.0-32.0); Mean Corpuscular Volume 97.1 fL (81-99); Mean Platelet Vol. 11.9 fl (6.2-12.0); Monocyte# 0.55 X10^3/uL; Monocyte% 13.4 % (0-10); NRBC Flagged by Analyzer 0 % (0-5); Neutrophil # 2.03 X10^3/uL (2.7-7.7); Neutrophil % 49.8 % (47-70); Platelet Count 161 K/mm3 (150-450); RBC Distribution Width CV 12.3 % (11.6-14.6); RBC Distribution Width SD 44.1 fl (35.1-43.9); Red Blood Count 4.42 M/mm3 (4.2-5.4); White Blood Count 4.1 K/mm3 (4.4-11.0)
[2024-06-05 11:13] LABS: ALB/GLOB Ratio 1.4 RATIO (0.9-2.4); AST(SGOT) 21 U/L (<=31); Alanine Aminotransfer ALT/SGPT 19 U/L (<=34); Albumin, Serum 4.3 g/dL (3.5-5.0); Alkaline Phosphatase 53 U/L (35-104); Anion Gap 11 (5-15); BUN 14 mg/dL (4-19); BUN/Creat Ratio 22.8 RATIO (10-20); Calcium 9.6 mg/dL (7.6-11.0); Carbon Dioxide 23.1 mmol/L (22.0-29.0); Chloride 103 mmol/L (96-108); Creatinine, Serum 0.61 mg/dL (0.70-1.20); EST Glomerular Filtration Rate 118 (>60); Globulin 3.1 g/dL (2.2-4.2); Glucose 87 mg/dL (70-99); Potassium 3.9 mmol/L (3.3-5.1); Protein, Total 7.5 g/dL (5.9-8.4); Sodium Level 138 mmol/L (133-145); Total Bilirubin 0.67 mg/dL (0.00-1.30)
== END | disposition home or self-care (01) ==
PROVIDERS: PCP Family Medicine; Referring Provider Internal Medicine Rheumatology; Visit Provider Internal Medicine Rheumatology
DX: M06.4 Inflammatory polyarthropathy (principal); M79.7 Fibromyalgia; Z79.899 Other long term (current) drug therapy
CPT/HCPCS: 36415; 80053; 85025

== ENCOUNTER → 2024-09-03 | Outpatient (CLI) | payer OTHER, MEDICAID, SELFPAY ==
[2024-09-03 17:46] LABS: Absolute Lymphocyte Count 1.43 X10^3/uL (0.83-4.51); Absolute Neutrophil Count 2.6 X10^3/uL (2.0-7.7); Basophil# 0.03 X10^3/uL; Basophil% 0.7 % (0-1); Eosinophil# 0.01 X10^3/uL; Eosinophils% 0.2 % (0-5); Hematocrit 45.4 % (37-47); Hemoglobin 14.9 g/dL (12.0-15.0); Lymphocyte # 1.43 X10^3/ul (0.83-4.51); Lymphocyte % 31.4 % (19-41); Mean Corp Hgb Conc 32.8 g/dL (32-36); Mean Corpuscular Hgb 31.6 pg (27.0-32.0); Mean Corpuscular Volume 96.2 fL (81-99); Monocyte# 0.48 X10^3/uL; Monocyte% 10.5 % (0-10); NRBC Flagged by Analyzer 0 % (0-5); Platelet Count 162 K/mm3 (150-450); RBC Distribution Width CV 11.9 % (11.6-14.6); RBC Distribution Width SD 41.6 fl (35.1-43.9); Red Blood Count 4.72 M/mm3 (4.2-5.4); White Blood Count 4.6 K/mm3 (4.4-11.0)
[2024-09-03 18:07] LABS: ALB/GLOB Ratio 1.5 RATIO (0.9-2.4); AST(SGOT) 24 U/L (<=31); Alanine Aminotransfer ALT/SGPT 22 U/L (<=34); Albumin, Serum 4.6 g/dL (3.5-5.0); Alkaline Phosphatase 69 U/L (35-104); Anion Gap 13 (5-15); BUN 14 mg/dL (4-19); BUN/Creat Ratio 20.5 RATIO (10-20); Calcium,Total 9.6 mg/dL (7.6-11.0); Carbon Dioxide 25.4 mmol/L (21.0-32.0); Chloride 101 mmol/L (98-108); Creatinine, Serum 0.69 mg/dL (0.70-1.20); EST Glomerular Filtration Rate 113 (>60); Globulin 3.1 g/dL (2.2-4.2); Glucose 89 mg/dL (70-99); Potassium 3.9 mmol/L (3.3-5.1); Protein, Total 7.7 g/dL (5.9-8.4); Sodium Level 140 mmol/L (133-145); Total Bilirubin 0.33 mg/dL (0.00-1.30)
== END | disposition home or self-care (01) ==
LOC: MTLAB 15:19
PROVIDERS: PCP Family Medicine; Referring Provider Internal Medicine Rheumatology; Visit Provider Internal Medicine Rheumatology
DX: M06.4 Inflammatory polyarthropathy (principal); M79.7 Fibromyalgia; K76.0 Fatty (change of) liver, not elsewhere classified; Z79.899 Other long term (current) drug therapy
CPT/HCPCS: 36415; 80053; 85025